=== PATIENT | female | born 1980 | race African-American/Black ===

== ENCOUNTER 2017-10-05 06:49 | Inpatient (IN) | payer SELFPAY ==
--- NOTE | 2017-10-05 07:17 | PDOC ---
History of Present Illness <Kristin Banks - Last Filed: 10/05/17 16:48> - History of Present Illness Initial Comments: 10/05/17 07:12 35 yo F with h/o HTN, HLD, sickle cell disease, DVT, chronic cystitis who p/w vomiting, and abdominal pain. Patient reports acute onset of multiple 10+ episodes of non bilious, non bloody, emesis beginning at 0400 AM, with no identifiable triggers or alleviators. Also endorses widespread dull pain, and diffuse crampy abdominal pain. Nml bowel movements with absent BPR. Also endorses hematuria. Recently returned from travel to [place] yesterday. Was in normal state of health yesterday. Patient states thats she had similar episodes in past and only phenergine has been helpful in alleviating symptoms. Ambulatory Phenergine 25 mg PRN. Similar episode (09/02/17) requiring outside admission for pain control, with gastroenteritis. 1 cup of alcohol yesterday evening 11-12. Patient denies F/C, CP, SOB, diarrhea, constipation, lightheadedness, weakness , sensory changes. PMHx: as noted above. Denies h/o abdominal surgery. ROS: as noted SHx: Etoh 2 x a week. Denies Etoh, tobacco. Allergies: NKDA <Yordy Barton - Last Filed: 10/05/17 17:04> - General Stated Complaint: ABDOMINAL PAIN Time Seen by Provider: 10/05/17 07:02 Past History <Kristin Banks - Last Filed: 10/05/17 16:48> - Past Medical History Disorders: Yes (chronic cystitis) HTN: Yes - Suicide/Smoking/Psychosocial Hx Smoking History: Never smoked Hx Alcohol Use: No Drug/Substance Use Hx: No Substance Use Type: None <Yordy Barton - Last Filed: 10/05/17 17:04> - Past Medical History Allergies/Adverse Reactions: Allergies Allergy/AdvReac Type Severity Reaction Status Date / Time ondansetron HCl AdvReac Intermediate Rash Verified 10/05/17 09:46 [From Zofran (as hydrochloride)] Home Medications: Ambulatory Orders Amlodipine Besylate [Norvasc -] 5 mg PO DAILY #30 tablet 05/15/16 Review of Systems - Review of Systems Comments:: 10/05/17 07:16 GENERAL/CONSTITUTIONAL: No fever or chills. No weakness. HEAD, EYES, EARS, NOSE AND THROAT: No change in vision. No ear pain or discharge. No sore throat. CARDIOVASCULAR: No chest pain or shortness of breath RESPIRATORY: No cough, wheezing, or hemoptysis. GASTROINTESTINAL: +abdominal pain, nausea, vomiting. No diarrhea or constipation. GENITOURINARY: No dysuria, frequency, or change in urination. MUSCULOSKELETAL: No joint or muscle swelling or pain. No neck or back pain. SKIN: No rash NEUROLOGIC: No headache, vertigo, loss of consciousness, or change in strength/ sensation. ENDOCRINE: No increased thirst. No abnormal weight change HEMATOLOGIC/LYMPHATIC: No anemia, easy bleeding, or history of blood clots. ALLERGIC/IMMUNOLOGIC: No hives or skin allergy. <Yordy Barton - Last Filed: 10/05/17 17:04> *Physical Exam - Vital Signs Last Vital Signs Temp Pulse Resp BP Pulse Ox 98 F 95 H 17 110/82 99 10/05/17 15:53 10/05/17 15:53 10/05/17 15:53 10/05/17 15:53 10/05/17 15:53 <Kristin Banks - Last Filed: 10/05/17 16:48> - Physical Exam Comments: 10/05/17 07:16 GENERAL: Awake, alert, and fully oriented, in no acute distress HEAD: No signs of trauma, normocephalic, atraumatic EYES: PERRLA, EOMI, sclera anicteric, conjunctiva clear ENT: Hearing grossly normal, nares patent, oropharynx clear without exudates. Moist mucosa NECK: Normal ROM, supple, no lymphadenopathy, JVD, or masses LUNGS: No distress, speaks full sentences, clear to auscultation bilaterally HEART: Regular rate and rhythm, normal S1 and S2, no murmurs, rubs or gallops, peripheral pulses normal and equal bilaterally. ABDOMEN: + Diffusely ttp. Soft, NDS, normoactive bowel sounds. No guarding, no rebound. No masses. Neg CVA ttp. EXTREMITIES : Normal inspection, Normal range of motion, no edema. No clubbing or cyanosis. SKIN: Warm, Dry, normal turgor, no rashes or lesions noted <Yordy Barton - Last Filed: 10/05/17 17:04> ED Treatment Course - LABORATORY CBC & Chemistry Diagram: 10/05/17 08:30 10/05/17 08:30 - ADDITIONAL ORDERS Additional order review: Laboratory Results 10/05/17 10/05/17 10/05/17 11:00 08:46 08:30 Sodium 143 Potassium 3.7 Chloride 109 H Carbon Dioxide 21 Anion Gap 13 BUN 12 Creatinine 0.8 Creat Clearance w eGFR > 60 Random Glucose 170 H Calcium 9.5 Total Bilirubin 0.4 AST 28 ALT 33 Alkaline Phosphatase 115 Total Protein 8.1 Albumin 4.1 Lipase Cancelled 149 Urine Color Yellow Urine Appearance Slcloudy Urine pH 6.0 Ur Specific [place] 1.014 Urine Protein 2+ H Urine Glucose (UA) 2+ H Urine Ketones Trace H Urine Blood 2+ H Urine Nitrite Positive Urine Bilirubin Negative Urine Urobilinogen Negative Ur Leukocyte Esterase Negative Urine WBC (Auto) 4 Urine RBC (Auto) 1 Ur Epithelial Cells Few Urine Bacteria Rare Urine Mucus Rare Urine HCG, Qual Negative 10/05/17 08:30 RBC 4.65 MCV 89.9 MCHC 34.4 RDW 13.6 MPV 7.7 Neutrophils % 79.9 D Lymphocytes % 13.2 D Monocytes % 3.8 Eosinophils % 2.0 Basophils % 1.1 - RADIOLOGY Radiology Studies Ordered: Category Date Time Status CHEST PA & LAT [RAD] Stat Radiology 10/05/17 15:23 Ordered - Medications Given in the ED: ED Medications Discontinued Medications Generic Name Dose Route Start Last Admin Trade Name Leeroy PRN Reason Stop Dose Admin Acetaminophen 1,000 mg 10/05/17 07:54 10/05/17 08:15 Ofirmev Injection - IVPB 10/05/17 07:55 Not Given ONCE ONE Diphenhydramine HCl 25 mg 10/05/17 08:46 10/05/17 08:55 Benadryl Injection - IVPUSH 10/05/17 08:47 25 mg ONCE ONE Administration Sodium Chloride 1,000 mls @ 1,000 mls/hr 10/05/17 07:28 10/05/17 08:35 Normal Saline - IV 10/05/17 08:27 1,000 mls/hr ASDIR STA Administration Sodium Chloride 1,000 mls @ 1,000 mls/hr 10/05/17 11:17 10/05/17 11:21 Normal Saline - IV 10/05/17 12:16 1,000 mls/hr ASDIR STA Administration Metoclopramide HCl 10 mg 10/05/17 10:59 10/05/17 11:21 Reglan Injection - IVPUSH 10/05/17 11:00 10 mg ONCE ONE Administration Morphine Sulfate 4 mg 10/05/17 08:34 10/05/17 08:45 Morphine Injection - IVPUSH 10/05/17 08:35 4 mg ONCE ONE Administration Morphine Sulfate 4 mg 10/05/17 09:36 10/05/17 10:21 Morphine Injection - IVPUSH 10/05/17 09:37 4 mg ONCE ONE Administration Morphine Sulfate 4 mg 10/05/17 11:26 10/05/17 11:46 Morphine Injection - IVPUSH 10/05/17 11:27 4 mg ONCE ONE Administration Ondansetron HCl 4 mg 10/05/17 08:34 10/05/17 08:45 Zofran Injection IVPUSH 10/05/17 08:35 4 mg ONCE ONE Administration Ondansetron HCl 4 mg 10/05/17 09:42 10/05/17 10:21 Zofran Injection IVPB 10/05/17 09:43 4 mg ONCE ONE Administration Promethazine HCl 12.5 mg 10/05/17 07:25 10/05/17 08:00 Phenergan - PO 10/05/17 07:26 Not Given ONCE ONE Promethazine HCl 12.5 mg 10/05/17 08:00 10/05/17 08:15 Phenergan Injection - IVPUSH 10/05/17 08:01 12.5 mg ONCE ONE Administration <Kristin Banks - Last Filed: 10/05/17 16:48> - LABORATORY CBC & Chemistry Diagram: 10/05/17 08:30 10/05/17 08:30 <Yordy Barton - Last Filed: 10/05/17 17:04> Medical Decision Making - Medical Decision Making 10/05/17 08:10 35 yo F with h/o HTN, HLD, sickle cell disease, DVT, chronic cystitis who p/w vomiting, and abdominal pain. Probable gastroenteritis. Low suspicon SBO, mesenteric ischemia. DDx: diverticulitis, appendicitis, colitis, cystitis, biliary dz. ED Course: CBC, CMP, Reticulocyte count, Lipase Phenergine 12.5 IVP, Tylenol, NS UA, Urine Preg 10/05/17 09:14 WBC: 17.9 10/05/17 09:14 Morphine 4 mg, Zofran 4 mg, Diphenhydramine 25 mg 10/05/17 11:25 GB: Neg 10/05/17 11:25 Reglan 10 mg 10/05/17 13:18 GB U/S: Neg 10/05/17 13:42 IV infiltrated, CT AP CON D/c'd. 10/05/17 17:04 CT AP: Unremarkable Patient admitted to med/surg. Dr. casper. <Yordy Barton - Last Filed: 10/05/17 17:04> *DC/Admit/Observation/Transfer - Discharge Dispostion Decision to Admit order: Yes <Kristin Banks - Last Filed: 10/05/17 16:48> - Discharge Dispostion Decision to Admit order: Yes - Attestations Physician Attestion: 10/05/17 07:17 I attest to the information provided in this note. <Yordy Barton - Last Filed: 10/05/17 17:04> Diagnosis at time of Disposition: Sickle cell anemia with crisis, Intractable abdominal pain Intractable vomiting with nausea Qualifiers: Vomiting type: unspecified Qualified Code(s): R11.2 - Nausea with vomiting, unspecified - Discharge Dispostion Condition at time of disposition: Stable - Patient Instructions Additional Instructions: Please return to the emergency department with any new or worsening symptoms or concerns. Please follow up with your primary care physician within 72 hours.
[2017-10-05] MEDS ORDERED: PROMETHAZINE HCL 25 MG TABLET PO ONE (07:25)
[2017-10-05] MEDS ORDERED: SODIUM CHLORIDE 1,000 ML IV STA ×2 (07:28→11:17)
[2017-10-05] MEDS ORDERED: ACETAMINOPHEN 1000 MG/100 ML VIAL (NON FORMULARY) IVPB ONE (07:54)
[2017-10-05] MEDS ORDERED: ACETAMINOPHEN INJECTION 100 ML IVPB ONE (07:55)
[2017-10-05] MEDS ORDERED: PROMETHAZINE HCL 25 MG/1 ML VIAL IVPUSH ONE (08:00)
[2017-10-05] MEDS ORDERED: PROMETHAZINE HCL 25 MG/1 ML VIAL ONE (08:25)
[2017-10-05] MEDS ORDERED: ONDANSETRON 4 MG/2 ML VIAL IVPUSH ONE (08:34)
[2017-10-05] MEDS ORDERED: morphine CARPU-JECT 4 MG/1 ML DISP.SYRIN IVPUSH ONE ×3 (08:34→11:26)
[2017-10-05] MEDS ORDERED: ONDANSETRON 4 MG/2 ML VIAL ONE ×2 (08:39→09:43)
[2017-10-05] MEDS ORDERED: morphine SULFATE 4 MG/ML VIAL ONE ×4 (08:39→19:43)
[2017-10-05 09:02] LABS: BASO % 1.1 % (0-2.0); HEMATOCRIT 41.8 % (32.4-45.2); HEMOGLOBIN 14.4 GM/dL (10.7-15.3); LYMPH % 13.2 % (8-40); MCHC 34.4 g/dl (32.0-36.0); MEAN CELL VOLUME 89.9 fl (80-96); MEAN PLT VOLUME 7.7 fl (7.5-11.1); MONO % 3.8 % (3.8-10.2); NEUT % 79.9 % (42.8-82.8); PLATELET COUNT 348 K/MM3 (134-434); RBC 4.65 M/mm3 (3.60-5.2); RDW 13.6 % (11.6-15.6); WHITE BLOOD COUNT 17.9 K/mm3 (4.0-10.0)
--- NOTE | 2017-10-05 09:30 | PDOC ---
Attending Attestation - HPI HPI: 10/05/17 10:56 The patient is a 35 year old female with a significant past medical history of sickle cell disease, DVT, HTN, HLD, and chronic cystitis who presents to the emergency department for evaluation of abdominal pain and vomiting. The patient reports diffuse abdominal pain beginning last night. She reports multiple episodes (10+) of non-bloody, non-bilious vomiting secondary to her pain which started at 4am. Pt reports recently returning from [place] yesterday. She notes her last state of good health was yesterday. The patient denies chest pain, shortness of breath, headache, dizziness, fever, chills, and any bowel/urinary symptoms. Allergies: Ondansetron HCl Social History: Reported alcohol consumption 2x a week. No reported cigarette or drug use. Surgical History: Pt denies. <Adolfo Zeng - Last Filed: 10/05/17 10:55> - Resident Resident Name: Yordy Barton - ED Attending Attestation I have performed the following: I have examined & evaluated the patient, The case was reviewed & discussed with the resident, I agree w/resident's findings & plan, Exceptions are as noted - Physicial Exam PE: 10/05/17 11:36 awake alert lungs clear bilaterally heart rrr no mrg. abd soft mild epigastric ttp . no rebound no guarding. skin warm and dry. alert oriented x 3 - Medical Decision Making 10/05/17 11:40 differential cholelithiasis, cholecystitis, gastritis, viral syndrome, sickle crisis, opiate withdrawal. plan labs ivf, us gb pain control. us unremakralbe. pt with elevated wbc. will obtain ct r/o other abd causes for n /v. abd pain. <Kristin Banks - Last Filed: 10/05/17 11:41> Attestations - Attestations Documentation prepared by Adolfo Zeng, acting as medical affairs manager for Kristin Banks MD. <Adolfo Zeng - Last Filed: 10/05/17 10:55>
[2017-10-05 09:34] LABS: ALBUMIN 4.1 g/dl (3.4-5.0); ANION GAP 13 (8-16); BLOOD UREA NITROGEN 12 mg/dL (7-18); CALCIUM 9.5 mg/dL (8.5-10.1); CHLORIDE 109 mmol/L (98-107); CO2 21 mmol/L (21-32); CREATININE 0.8 mg/dL (0.55-1.02); GLUCOSE,RANDOM 170 mg/dL (74-106); LIPASE 149 U/L (73-393); POTASSIUM 3.7 mmol/L (3.5-5.1); SGOT/AST 28 U/L (15-37); SODIUM 143 mmol/L (136-145)
[2017-10-05] MEDS ORDERED: ONDANSETRON 4 MG/2 ML VIAL IVPB ONE (09:42)
[2017-10-05 09:47] LABS: ALK PHOS 115 U/L (45-117); BILIRUBIN,TOTAL 0.4 mg/dL (0.2-1.0); SGPT/ALT 33 U/L (12-78); TOT PROT 8.1 g/dl (6.4-8.2)
[2017-10-05] MEDS ORDERED: METOCLOPRAMIDE HCL INJECTION 10 MG/2 ML VIAL IVPUSH ONE (10:59)
[2017-10-05] MEDS ORDERED: METOCLOPRAMIDE HCL INJECTION 10 MG/2 ML VIAL ONE (11:08)
[2017-10-05] MEDS ORDERED: MORPHINE SULFATE 2 MG/ML VIAL ONE (11:32)
[2017-10-05 11:40] LABS: HCG,QUALITATIVE URINE NEGATIVE
[2017-10-05 11:45] LABS: URINE APPEARANCE SLCLOUDY; URINE BILIRUBIN NEGATIVE (<2.0 mg/dL); URINE COLOR YELLOW; URINE GLUCOSE (UA) 2+ (NEGATIVE); URINE KETONE TRACE (NEGATIVE); URINE LEUK ESTERASE NEGATIVE (NEGATIVE); URINE NITRITE POSITIVE (NEGATIVE); URINE UROBILINOGEN NEGATIVE mg/dL (0.2-1.0)
[2017-10-05 11:54] LABS: URINE PROTEIN 2+ (NEGATIVE)
[2017-10-05 12:42] LABS: EPI CELLS FEW /HPF (FEW); URINE BACTERIA RARE /hpf (NONE SEEN); URINE MUCUS RARE
--- NOTE | 2017-10-05 15:46 | HP ---
CHIEF COMPLAINT: PCP: HISTORY OF PRESENT ILLNESS: Pt is a 37 yo F with PMHx of sickle cell disease ( multiple crises), fibromyalgia, DVT x3, PE x2, HTN, HLD, and chronic cystitis presenting after her 1am flight from [place] with abdominal pain, n/v and generalized body pain that started around 3am. It started with increased diaphoresis, no objective fevers. Pt describes a 10/10 intermittent colicky generalized abd pain with NBNB vomiting later associated streaks of blood. Pt last ate yesterday because of N/V. Pt had endoscopy for similar symptoms in the past which was said to be normal. She had up to 10 episodes of vomiting in the ED, some witnessed with eventual dry heaving. She describes 3 episodes of loose non bloody stool and hematuria. Pt has had similar symptoms in past during her sickel cell crises and has been managed with genrous hydration and pain mx. She also has pain in both shoulders, back and both lower limbs. Pt has had up to 10 crises this year. Had 2 in August (, August 16). Says she takes hydrocodone 7.5-10mg at home as needed for pain. She got off xarelto a month ago after a DVT of left LE in apr 2017 and she also discontinued coumadin and lovenox in the past for previous DVTs/PEs. Pt has a hemoncologist in [facility] and thinks she was prescribed hydroxyurea, but does not take it. Pt has had 2nd degree blocks in the past during her crises, dose not take her prescribed amlodipine along with other medications because she is trying out natural options. Initially dyspneic today, which has since resolved, no syncope, weakness or cough.She noticed some thigh swelling bilaterally ER course was notable for: (1) CT abd w/o contrast- wnl, Abd US (2) WBC-17.9, UA- glucosuria 2+, trace ketones, Pr, bld-2+, sugar -175 (3) Iv morphine, Normal saline, Recent Travel: From [place] yesterday PAST MEDICAL HISTORY: sickle cell disease (multiple crises), fibromyalgia, DVT x3, PE x2, HTN, HLD PAST SURGICAL HISTORY: Social History: Smoking: Denies Alcohol:Social Drugs: Marijuana- x3 a week Family History: Both parents are diabetic, diagnosed about 10yrs ago- Father 68, Mother 61 Brother- prediabetic Sister- SCD and Lupus Allergies ondansetron HCl [From Zofran (as hydrochloride)] Adverse Reaction (Intermediate , Verified 10/05/17 09:46) Rash HOME MEDICATIONS: Home Medications Medication Instructions Recorded Amlodipine Besylate [Norvasc -] 5 mg PO DAILY #30 tablet 05/15/16 REVIEW OF SYSTEMS CONSTITUTIONAL: diaphoresis+ Absent: fever, chills, generalized weakness, malaise, loss of appetite, weight change HEENT: Absent: rhinorrhea, nasal congestion, throat pain, throat swelling, difficulty swallowing, mouth swelling, ear pain, eye pain, visual changes CARDIOVASCULAR: Absent: chest pain, syncope, palpitations, irregular heart rate, lightheadedness , peripheral edema RESPIRATORY: Absent: cough, shortness of breath, dyspnea with exertion, orthopnea, wheezing, stridor, hemoptysis GASTROINTESTINAL: Absent: abdominal pain+, abdominal distension, nausea+, vomiting+, diarrhea, constipation, melena, hematochezia GENITOURINARY: Absent: dysuria, frequency, urgency, hesitancy, hematuria+, flank pain, genital pain MUSCULOSKELETAL: Absent: myalgia+, arthralgia, joint swelling, back pain+, neck pain SKIN: Absent: rash, itching, pallor HEMATOLOGIC/IMMUNOLOGIC: Absent: easy bleeding, easy bruising, lymphadenopathy, frequent infections ENDOCRINE: Absent: unexplained weight gain, unexplained weight loss, heat intolerance, cold intolerance NEUROLOGIC: Absent: headache, focal weakness or paresthesias, dizziness, unsteady gait, seizure, mental status changes, bladder or bowel incontinence PSYCHIATRIC: Absent: anxiety, depression, suicidal or homicidal ideation, hallucinations. PHYSICAL EXAMINATION Vital Signs - 24 hr 10/05/17 10/05/17 10/05/17 07:05 10:01 10:10 Temperature 97.5 F L 97.8 F 97.5 F L Pulse Rate 75 Pulse Rate [ 87 87 Right Radial] Respiratory 17 17 20 Rate Blood Pressure 175/103 Blood Pressure 110/61 110/61 [Left Arm] O2 Sat by Pulse 100 98 99 Oximetry (%) 10/05/17 11:45 Temperature Pulse Rate Pulse Rate [ 89 Right Radial] Respiratory 17 Rate Blood Pressure Blood Pressure 165/104 [Left Arm] O2 Sat by Pulse 98 Oximetry (%) GENERAL: Awake, alert, and fully oriented, in no acute distress. EYES: anicteric, conjunctiva clear. EARS, NOSE, THROAT: Moist mucous membranes. NECK: supple without lymphadenopathy, LUNGS: Breath sounds equal, clear to auscultation bilaterally. No wheezes, and no crackles HEART: tachycardic, S1 and S2 ABDOMEN: Soft, generalized tenderness, not distended, normoactive bowel sounds, MUSCULOSKELETAL: Normal range of motion at all joints. reproducible generalized tenderness. No CVA tenderness. L UE redness and swelling (iv extravasation) LOWER EXTREMITIES: No peripheral edema. Firm swelling over thighs bilaterally NEUROLOGICAL: Cranial nerves II-XII intact. Normal speech. Normal gait. CBC, BMP 10/05/17 08:30 10/05/17 08:30 Laboratory Results - last 24 hr 10/05/17 10/05/17 10/05/17 08:30 08:30 08:46 WBC 17.9 H RBC 4.65 Hgb 14.4 Hct 41.8 MCV 89.9 MCH 31.0 MCHC 34.4 RDW 13.6 Plt Count 348 D MPV 7.7 Absolute Neuts (auto) 14.3 Neutrophils % 79.9 D Lymphocytes % 13.2 D Monocytes % 3.8 Eosinophils % 2.0 Basophils % 1.1 Nucleated RBC % 0 Retic Count Sodium 143 Potassium 3.7 Chloride 109 H Carbon Dioxide 21 Anion Gap 13 BUN 12 Creatinine 0.8 Creat Clearance w eGFR > 60 Random Glucose 170 H Calcium 9.5 Total Bilirubin 0.4 AST 28 ALT 33 Alkaline Phosphatase 115 Total Protein 8.1 Albumin 4.1 Lipase 149 Cancelled Urine Color Urine Appearance Urine pH Ur Specific [place] Urine Protein Urine Glucose (UA) Urine Ketones Urine Blood Urine Nitrite Urine Bilirubin Urine Urobilinogen Ur Leukocyte Esterase Urine WBC (Auto) Urine RBC (Auto) Ur Epithelial Cells Urine Bacteria Urine Mucus Urine HCG, Qual 10/05/17 10/05/17 09:28 11:00 WBC RBC Hgb Hct MCV MCH MCHC RDW Plt Count MPV Absolute Neuts (auto) Neutrophils % Lymphocytes % Monocytes % Eosinophils % Basophils % Nucleated RBC % Retic Count 1.30 D Sodium Potassium Chloride Carbon Dioxide Anion Gap BUN Creatinine Creat Clearance w eGFR Random Glucose Calcium Total Bilirubin AST ALT Alkaline Phosphatase Total Protein Albumin Lipase Urine Color Yellow Urine Appearance Slcloudy Urine pH 6.0 Ur Specific [place] 1.014 Urine Protein 2+ H Urine Glucose (UA) 2+ H Urine Ketones Trace H Urine Blood 2+ H Urine Nitrite Positive Urine Bilirubin Negative Urine Urobilinogen Negative Ur Leukocyte Esterase Negative Urine WBC (Auto) 4 Urine RBC (Auto) 1 Ur Epithelial Cells Few Urine Bacteria Rare Urine Mucus Rare Urine HCG, Qual Negative Current Medications Enoxaparin Sodium (Lovenox -) 75 mg SQ BID@0700,1900 THOM Hydromorphone HCl (Dilaudid Injection -) 2 mg IVPUSH Q3H PRN PRN Reason: PAIN LEVEL 6-10 Sodium Chloride (Normal Saline -) 1,000 mls @ 150 mls/hr IV ASDIR THOM Insulin Aspart (Novolog Vial Sliding Scale -) 1 vial SQ ACHS THOM; Protocol Miscellaneous (Percocet - Must Order Individual Components) 1 each NR ASDIR PRN PRN Reason: PAIN LEVEL 1-5 Ondansetron HCl (Zofran Injection) 4 mg IVPUSH Q4H PRN PRN Reason: NAUSEA Pantoprazole Sodium (Protonix Iv) 40 mg IVPUSH DAILY [facility] ASSESSMENT/PLAN: Pt is a 37 yo F with PMHx of SCD (multiple crises), fibromyalgia, DVT x3, PE x2 , HTN, HLD, and chronic cystitis presenting after her 1am flight from [place] with abdominal pain, n/v and generalized body pain Sickle cell crisis-likely pain crisis Likely due to hypoxia following the flight Pt not compliant on home hydrourea Recurrent frequent crises (2 in August) Pain mx with Po dilaudid 2mg Q3H PRN (pain 6-10) Percocet 5mg Q6H (pain 1-5) Iv morphine 4mg Q4H Iv Fluids received NS in ED Cont NS @150/hr Hemonc consult- Dr Weiss antiemetic- zofran 4mg Q4H CXR pending Epigastric pain Likely secondary to retching, no massive hematemesis reported Hgb stable Iv protonix 40mg daily zofran 4mg Q4H CBC Monitor Out pt endoscopy- previously negative CT abd negative Nausea/vomting Reported as part of previous SCD crises Cont zofran Cont iv hydration Utox- hx of marijuana use, R/o cannabinnoid cyclical vomiting syndrome LE (thigh)swelling and pain L>R Hx of recurrent DVTs R/o DVt-Bilat LE venous duplx Cont lovenox full dose HTN Pt noted to have elevated pressures in the ED Could be due to pain Had not been compliant on home amlodipine Monitor off BP meds for now If trending up add 5mg amlodipine Prediabetes Now with glucosuria, glu 175 (last meal yesterday), with FHx of DM HgbA1c BGM -ACHS ISS-ACHS Previous DVT/PE Pt said she stopped xarelto 1 month ago after DVT in Apr 2017 Considering hematuria and likely hematemesis, with hold xarelto for now Lovenox 1mg/kg bid- 75mg bid Q12H LUE swelling Following iv extravasation Warm compress Monitor Hx of 2nd degree heart block In previous crises EKG pending For tele in pt FEN Iv Ns @150 Monitor lytes replete as needed Full liq diabetic diet, advance as tolerated PPx Cont lovenox full dose Protonix Dispo Tele in pt Visit type - Emergency Visit Emergency Visit: Yes ED Registration Date: 10/05/17 Care time: The patient presented to the Emergency Department on the above date and was hospitalized for further evaluation of their emergent condition. - New Patient This patient is new to me today: Yes Date on this admission: 10/05/17 - Critical Care Critical Care patient: No Hospitalist Screening - Colonoscopy Questionnaire Colonoscopy Questionnaire: Colonoscopy Questionnaire - Patient: 50 - 75 years old and never had a screening colonoscopy: No History of colon or rectal polyps, or CA: Unknown History of IBD, Crohn's disease or UC: Unknown History of abdominal radiation therapy as a child: Unknown - Relative: 1 with colon or rectal CA, or polyps at age 60 or younger: Unknown Colon or rectal CA diagnosed at age 45 or younger: Unknown Multiple relatives with colon or rectal CA: Unknown - Outcome: Screening Result: Negative Screen
[2017-10-05] MEDS ORDERED: INSULIN SLIDING SCALE (NOVOLOG) 1 VIAL SQ SCH (16:30)
[2017-10-05] MEDS ORDERED: LIDOCAINE 2.5%/PRILOCAINE 2.5% (5 Gram/TUBE) TP ONE (16:43)
[2017-10-05] MEDS ORDERED: HYDROmorphone HCL CARPU-JECT 2 MG/1 ML DISP.SYRIN IVPUSH PRN ×2 (16:47→17:02)
--- NOTE | 2017-10-05 16:47 | PN ---
Teaching Attending Note Name of Resident: Naida Reyes ATTENDING PHYSICIAN STATEMENT I saw and evaluated the patient. I reviewed the resident's note and discussed the case with the resident. I agree with the resident's findings and plan as documented with exceptions below. SUBJECTIVE: 37 yof with PMhx of sickle cell disease, multiple sickle cell crisis episodes over the years, 8 in the last year, recently admitted x 2 in August in [place] for the same, also multiple DVT/PE, last DVT in 04/2017, not taking her xarelto for last 1 month ( Prior h/o non compliance with her coumadin), living in [place], visiting her mother, was on a flight from [place] yesterday, came later last night. Work up this AM with sharp epigastric pain, progressing to generalized abdominal pain associated chest, back and generalized body pain followed by nausea, and vomiting that started as food initially followed by some scant blood streaks, then bilious, multiple episodes with no PO intake and few episodes of loose stools, prompting her to come to the ED. Had some dyspnea on admission that is resolved now. Currently feels better after receiving pain meds and fluids in the ED. States the episode is similar to her multiple prior flares, also occasional blood streak with her vomitus, had an EGD for the same that was reportedly unremarkable. Usually ends up needing to stay 2-4 days in the hospital. 12 point ROS done, also with left thigh pain and PO intake since yesterday 7 pm. Patient was planned for CT with IV contrast, alf though contrast injection, IV infiltrated. Currently reports some discomfort right arm from the same but better. OBJECTIVE: Vital Signs Period Temp Pulse Resp BP Sys/Michael Pulse Ox Last 24 Hr 97.5 F-98 F 75-95 17-20 110-175/61-104 98-100 Intake & Output 10/02/17 10/03/17 10/04/17 10/05/17 23:59 23:59 23:59 23:59 Weight 165 lb GENERAL: Awake, alert, and fully oriented, in no acute distress. HEAD: Normal with no signs of trauma. EYES: Pupils equal, round and reactive to light, extraocular movements intact, sclera anicteric, conjunctiva clear. No lid lag. EARS, NOSE, THROAT: Ears normal, nares patent, oropharynx clear without exudates. Mildly dry mucous membrane. NECK: soft, supple, no JVD LUNGS: Breath sounds equal, clear to auscultation bilaterally. No wheezes, and no crackles. No accessory muscle use. HEART: S1S2 regular. ABDOMEN: Soft, generalized tenderness on exam more in larry-umbilical region, no focal point, no voluntary or involuntary guarding or rigidity, positive bowel sounds MUSCULOSKELETAL: Normal range of motion at all joints. No bony deformities or tenderness. No CVA tenderness. UPPER EXTREMITIES: left hand edema from prior IV site, Right antecubital IV site with minimal swelling in ventral right forearm LOWER EXTREMITIES: 2+ pulses, warm, well-perfused. Right thigh swelling/minimal tenderness NEUROLOGICAL: Cranial nerves II-XII intact. Normal speech. Gait deferred PSYCHIATRIC: Cooperative. Good eye contact. Appropriate mood and affect. SKIN: Warm, dry, normal turgor, no rashes or lesions noted, normal capillary refill. Home Medications Medication Instructions Recorded Amlodipine Besylate [Norvasc -] 5 mg PO DAILY #30 tablet 05/15/16 Active Medications Insulin Aspart (Novolog Vial Sliding Scale -) 1 vial SQ [facility]; Protocol Laboratory Results - last 24 hr 10/05/17 10/05/17 10/05/17 08:30 08:30 08:46 WBC 17.9 H RBC 4.65 Hgb 14.4 Hct 41.8 MCV 89.9 MCH 31.0 MCHC 34.4 RDW 13.6 Plt Count 348 D MPV 7.7 Absolute Neuts (auto) 14.3 Neutrophils % 79.9 D Lymphocytes % 13.2 D Monocytes % 3.8 Eosinophils % 2.0 Basophils % 1.1 Nucleated RBC % 0 Retic Count Sodium 143 Potassium 3.7 Chloride 109 H Carbon Dioxide 21 Anion Gap 13 BUN 12 Creatinine 0.8 Creat Clearance w eGFR > 60 Random Glucose 170 H Calcium 9.5 Total Bilirubin 0.4 AST 28 ALT 33 Alkaline Phosphatase 115 Total Protein 8.1 Albumin 4.1 Lipase 149 Cancelled Urine Color Urine Appearance Urine pH Ur Specific [place] Urine Protein Urine Glucose (UA) Urine Ketones Urine Blood Urine Nitrite Urine Bilirubin Urine Urobilinogen Ur Leukocyte Esterase Urine WBC (Auto) Urine RBC (Auto) Ur Epithelial Cells Urine Bacteria Urine Mucus Urine HCG, Qual 10/05/17 10/05/17 09:28 11:00 WBC RBC Hgb Hct MCV MCH MCHC RDW Plt Count MPV Absolute Neuts (auto) Neutrophils % Lymphocytes % Monocytes % Eosinophils % Basophils % Nucleated RBC % Retic Count 1.30 D Sodium Potassium Chloride Carbon Dioxide Anion Gap BUN Creatinine Creat Clearance w eGFR Random Glucose Calcium Total Bilirubin AST ALT Alkaline Phosphatase Total Protein Albumin Lipase Urine Color Yellow Urine Appearance Slcloudy Urine pH 6.0 Ur Specific [place] 1.014 Urine Protein 2+ H Urine Glucose (UA) 2+ H Urine Ketones Trace H Urine Blood 2+ H Urine Nitrite Positive Urine Bilirubin Negative Urine Urobilinogen Negative Ur Leukocyte Esterase Negative Urine WBC (Auto) 4 Urine RBC (Auto) 1 Ur Epithelial Cells Few Urine Bacteria Rare Urine Mucus Rare Urine HCG, Qual Negative Abdominal US results noted CT A/P results noted ASSESSMENT AND PLAN: 37 yof with acute sickle cell crisis with left thigh pain -Acute sickle cell crisis -Dehydration -Nausea/vomiting/diarrhea, /From her sickle cell crisis (reports similar prior presentations) vs gastroenteritis high on different -?Scant hemetemesis, from vomiting (similar prior episodes and reportedly non concerning EGD outpatient) -Left thigh pain, r/o DVT -LUE IV infiltration -Multiple DVT/PE, non compliance with xarelto -HTN -Reported h/o second degree Heart block in crisis. Plan: Supportive treatment with aggressive IVF, NS 150/hr, zofran, pain control with dilaudid 2 mg IV q3h prn. full liquid diet, advance as tolerated. Recurrent episodes, Unclear if on hydroxyurea. Hematology consult. Stool studies if recurrent diarrhea. No focal signs/symptoms concerning for infection. Dopper LLE to r/o DVT. Monitor h/h. hemoglobin and hemodynamics stable, low suspicion for ongoing bleed. Place on lovenox tonight. If no further bleed concerns, resume xarelto in 24 hours. Warm compresses to LUE. Resume norvasc based on BP readings. DVTPPX, as above. GIPPX with protonix 40 mg IV daily. Admit to telemetry given reported h/o 2 degree AVB while in crisis. Plan discussed with patient in detail, all questions answered. Patient relays understanding and in agreement with the plan. Total admit time 65 min.
[2017-10-05] MEDS ORDERED: ONDANSETRON 4 MG/2 ML VIAL IVPUSH PRN (16:53)
[2017-10-05] MEDS ORDERED: SODIUM CHLORIDE 1,000 ML IV SCH (17:00)
[2017-10-05] MEDS ORDERED: oxyCODONE/APAP 1 EACH - MUST ORDER COMBO PRODUCT NR PRN (17:00)
[2017-10-05] MEDS ORDERED: morphine SULFATE 4 MG/ML VIAL IVPUSH ONE (17:15)
[2017-10-05] MEDS: morphine SULFATE 4 MG/ML VIAL IVPUSH PRN (20:06)
[2017-10-05] MEDS: SODIUM CHLORIDE 1,000 ML IV SCH (20:06)
[2017-10-05 20:41] LABS: INR 1.11 (0.82-1.09); PROTHROMBIN TIME (PATIENT) 12.5 SEC (9.7-13.0)
[2017-10-05] MEDS ORDERED: ENOXAPARIN NA (PORCINE) 80 MG/0.8 ML DISP.SYRIN SQ SCH (22:00)
[2017-10-06] MEDS ORDERED: ONDANSETRON 4 MG/2 ML VIAL ONE ×2 (00:34→09:01)
[2017-10-06] MEDS ORDERED: morphine SULFATE 4 MG/ML VIAL ONE ×3 (00:34→11:45)
[2017-10-06] MEDS: morphine SULFATE 4 MG/ML VIAL IVPUSH PRN ×5 (00:42→20:44)
[2017-10-06] MEDS: ONDANSETRON 4 MG/2 ML VIAL IVPUSH PRN ×3 (00:43→20:43)
[2017-10-06] MEDS ORDERED: HYDROmorphone HCL 2 MG TABLET ONE ×4 (03:34→13:26)
[2017-10-06] MEDS: HYDROmorphone HCL 2 MG TABLET PO PRN ×5 (03:36→22:51)
[2017-10-06 06:36] LABS: BASO % 0.2 % (0-2.0); EOS % 1.7 % (0-4.5); HEMATOCRIT 36.8 % (32.4-45.2); HEMOGLOBIN 12.8 GM/dL (10.7-15.3); LYMPH % 26.1 % (8-40); MCH 30.9 pg (25.7-33.7); MCHC 34.8 g/dl (32.0-36.0); MEAN CELL VOLUME 88.9 fl (80-96); MEAN PLT VOLUME 7.6 fl (7.5-11.1); PLATELET COUNT 265 K/MM3 (134-434); RBC 4.14 M/mm3 (3.60-5.2); RDW 13.7 % (11.6-15.6); WHITE BLOOD COUNT 10.9 K/mm3 (4.0-10.0)
[2017-10-06 07:06] LABS: INR 1.17 (0.82-1.09); PROTHROMBIN TIME (PATIENT) 13.2 SEC (9.7-13.0)
[2017-10-06 07:29] LABS: ALBUMIN 3.6 g/dl (3.4-5.0); ANION GAP 9 (8-16); BLOOD UREA NITROGEN 5 mg/dL (7-18); CALCIUM 8.3 mg/dL (8.5-10.1); CHLORIDE 111 mmol/L (98-107); CO2 24 mmol/L (21-32); CREATININE 0.6 mg/dL (0.55-1.02); GLUCOSE,RANDOM 87 mg/dL (74-106); MAGNESIUM 2.1 mg/dL (1.8-2.4); PHOSPHOROUS 2.4 mg/dL (2.5-4.9); POTASSIUM 3.6 mmol/L (3.5-5.1); SGOT/AST 21 U/L (15-37); SGPT/ALT 27 U/L (12-78); SODIUM 144 mmol/L (136-145)
[2017-10-06 07:31] LABS: ALK PHOS 95 U/L (45-117); BILIRUBIN,TOTAL 0.6 mg/dL (0.2-1.0)
[2017-10-06] MEDS: PANTOPRAZOLE SODIUM 40 MG VIAL IVPUSH SCH (10:24)
[2017-10-06] MEDS: ENOXAPARIN NA (PORCINE) 80 MG/0.8 ML DISP.SYRIN SQ SCH ×3 (10:32→20:43)
[2017-10-06] MEDS: INSULIN SLIDING SCALE (NOVOLOG) 1 VIAL SQ SCH ×3 (11:43→16:52)
--- NOTE | 2017-10-06 12:55 | CONSULT ---
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 She is visiting here from [place] and she was admitted with a crisis. She reports that she has upto 10 crisis per year. She has whole body pain veyr similar to her crisis pains. She had n/v with mild hematemesis and she also had bleeding per vagina which she reports happens with her crisis. Since yesterday she also has swelling in her L. arm (? iv infiltration) but also in her L. neck as well. She has had 1 blood clot and 2 * PE and hence she is on xarelto. She has one blood transfusion in the past in 2014 when she had a pneumonia. She was prescribed Hydroxyurea in the past for her recurrent crisi but she doesn't like taking multiple meds and hence doesnt take it. She only takes folic acid. She reports no retinopathy during her regular opthal. exams. Comorbidities : fibromyalgia, DVT x3, PE x2, HTN, HLD, and chronic cystitis ER course was notable for: (1) CT abd w/o contrast- wnl, Abd US (2) WBC-17.9, UA- glucosuria 2+, trace ketones, Pr, bld-2+, sugar -175 (3) Iv morphine, Normal saline, Recent Travel: From [place] PAST MEDICAL HISTORY: sickle cell disease (multiple crises), fibromyalgia, DVT x3, PE x2, HTN, HLD PAST SURGICAL HISTORY: Social History: Smoking: Denies Alcohol:Social Drugs: Marijuana- x3 a week Family History: Both parents are diabetic, diagnosed about 10yrs ago- Father 68, Mother 61 Brother- prediabetic Sister- SCD and Lupus Allergies ondansetron HCl [From Zofran (as hydrochloride)] Adverse Reaction (Intermediate , Verified 10/05/17 09:46) Rash HOME MEDICATIONS: Home Medications Medication Instructions Recorded Amlodipine Besylate [Norvasc -] 5 mg PO DAILY #30 tablet 05/15/16 REVIEW OF SYSTEMS CONSTITUTIONAL: diaphoresis+ Absent: fever, chills, generalized weakness, malaise, loss of appetite, weight change HEENT: Absent: rhinorrhea, nasal congestion, throat pain, throat swelling, difficulty swallowing, mouth swelling, ear pain, eye pain, visual changes CARDIOVASCULAR: Absent: chest pain, syncope, palpitations, irregular heart rate, lightheadedness , peripheral edema RESPIRATORY: Absent: cough, shortness of breath, dyspnea with exertion, orthopnea, wheezing, stridor, hemoptysis GASTROINTESTINAL: Absent: abdominal pain+, abdominal distension, nausea+, vomiting+, diarrhea, constipation, melena, hematochezia GENITOURINARY: Absent: dysuria, frequency, urgency, hesitancy, hematuria+, flank pain, genital pain MUSCULOSKELETAL: Absent: myalgia+, arthralgia, joint swelling, back pain+, neck pain SKIN: Absent: rash, itching, pallor HEMATOLOGIC/IMMUNOLOGIC: Absent: easy bleeding, easy bruising, lymphadenopathy, frequent infections ENDOCRINE: Absent: unexplained weight gain, unexplained weight loss, heat intolerance, cold intolerance NEUROLOGIC: Absent: headache, focal weakness or paresthesias, dizziness, unsteady gait, seizure, mental status changes, bladder or bowel incontinence PSYCHIATRIC: Absent: anxiety, depression, suicidal or homicidal ideation, hallucinations. PHYSICAL EXAMINATION Vital Signs Period Temp Pulse Resp BP Sys/Michael Pulse Ox Last 24 Hr 98 F-98.4 F 80-95 17-18 110-139/82-104 98-100 GENERAL: Awake, alert, and fully oriented, in no acute distress. EYES: anicteric, conjunctiva clear. EARS, NOSE, THROAT: Moist mucous membranes. NECK: supple without lymphadenopathy, ABDOMEN: Soft, generalized tenderness, not distended, normoactive bowel sounds, MUSCULOSKELETAL: Normal range of motion at all joints. reproducible generalized tenderness. No CVA tenderness. L UE swelling (iv extravasation). L. neck swelling as well. LOWER EXTREMITIES: No peripheral edema. NEUROLOGICAL: Cranial nerves II-XII intact. Normal speech. Normal gait. CBC, BMP 10/06/17 05:40 10/06/17 05:40 Current Medications Generic Name Dose Route Start Last Admin Trade Name Freq PRN Reason Stop Dose Admin Diphenhydramine HCl 12.5 mg 10/06/17 09:30 Benadryl Injection - IVPUSH Q6H PRN FOR ITCHING Enoxaparin Sodium 75 mg 10/05/17 19:00 10/06/17 10:32 Lovenox - SQ 75 mg BID@0700,1900 THOM Administration Hydromorphone HCl 2 mg 10/05/17 18:56 10/06/17 09:03 Dilaudid - PO 2 mg Q3H PRN Administration PAIN LEVEL 6-10 Sodium Chloride 1,000 mls @ 150 mls/hr 10/05/17 17:01 10/05/17 20:06 Normal Saline - IV 150 mls/hr ASDIR THOM Administration Insulin Aspart 1 vial 10/05/17 16:30 10/06/17 11:44 Novolog Vial Sliding Scale - SQ Not Given ACHS THOM Protocol Morphine Sulfate 4 mg 10/05/17 18:58 10/06/17 11:47 Morphine Sulfate IVPUSH 4 mg Q4H PRN Administration PAIN LEVEL 6-10 Ondansetron HCl 4 mg 10/05/17 17:04 10/06/17 09:10 Zofran Injection IVPUSH 4 mg Q4H PRN Administration NAUSEA Pantoprazole Sodium 40 mg 10/06/17 10:00 10/06/17 10:24 Protonix Iv IVPUSH 40 mg DAILY THOM Administration ASSESSMENT/PLAN: 37 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 -Agree with IVF, Folic acid, pain control for management of pain -Agree with Dr. Galaviz's note- lovenox for now and xarelto later if bleeding stable or none for her prior h/o of DVT/ PE, duplex of L.UE and neck -I dont think hydroxyurea in the short term is beneficial since she has a h/o of non compliance -I will send Hb electrophoresis to confirm her sickle cell type -No requirements for blood transfusions at this time -will continue to f/v
[2017-10-06] MEDS: SODIUM CHLORIDE 1,000 ML IV SCH (13:28)
[2017-10-06] MEDS: FOLIC ACID 1 MG TABLET (FP) PO SCH (13:33)
[2017-10-06] MEDS ORDERED: FOLIC ACID 1 MG TABLET (FP) ONE (13:33)
--- NOTE | 2017-10-06 13:56 | PN ---
Physical Exam: SUBJECTIVE: Patient seen and examined, feels better,no further diarrhea. abdominal pain improved. Generalized body pain has improved. Left upper extremity swelling, reports from IV site, but not where IV infiltrated and re- iterates the infiltrated IV was in the right arm. No new dyspnea noted. OBJECTIVE: Vital Signs Period Temp Pulse Resp BP Sys/Michael Pulse Ox Last 24 Hr 98 F-98.5 F 74-95 17-20 110-142/78-104 98-100 GENERAL:sitting in bed in no acute distress Neck: fullness left supraclavicular fossa, non tender Abdomen:soft, mild tenderness in the larry-umbilc tenderness (improved from yesterday), no voluntary or involuntary guarding or rigidity, positive bowel sounds Extremities: left hand edema with mild erythema, positive pulses Laboratory Results - last 24 hr 10/05/17 10/06/17 10/06/17 19:50 05:40 05:40 WBC RBC Hgb Hct MCV MCH MCHC RDW Plt Count MPV Absolute Neuts (auto) Neutrophils % Lymphocytes % Monocytes % Eosinophils % Basophils % Nucleated RBC % PT with INR 12.50 13.20 H INR 1.11 1.17 H Sodium Potassium Chloride Carbon Dioxide Anion Gap BUN Creatinine Creat Clearance w eGFR POC Glucometer Random Glucose Hemoglobin A1c % 5.4 Calcium Phosphorus Magnesium Total Bilirubin AST ALT Alkaline Phosphatase Total Protein Albumin 10/06/17 10/06/17 10/06/17 05:40 05:40 11:42 WBC 10.9 H RBC 4.14 Hgb 12.8 Hct 36.8 MCV 88.9 MCH 30.9 MCHC 34.8 RDW 13.7 Plt Count 265 D MPV 7.6 Absolute Neuts (auto) 7.2 Neutrophils % 66.0 Lymphocytes % 26.1 D Monocytes % 6.0 Eosinophils % 1.7 Basophils % 0.2 Nucleated RBC % 0 PT with INR INR Sodium 144 Potassium 3.6 Chloride 111 H Carbon Dioxide 24 Anion Gap 9 BUN 5 L Creatinine 0.6 Creat Clearance w eGFR > 60 POC Glucometer [id number] Random Glucose 87 Hemoglobin A1c % Calcium 8.3 L Phosphorus 2.4 L Magnesium 2.1 Total Bilirubin 0.6 AST 21 ALT 27 Alkaline Phosphatase 95 D Total Protein 7.0 Albumin 3.6 Active Medications Generic Name Dose Route Start Last Admin Trade Name Freq PRN Reason Stop Dose Admin Diphenhydramine HCl 12.5 mg 10/06/17 09:30 Benadryl Injection - IVPUSH Q6H PRN FOR ITCHING Enoxaparin Sodium 75 mg 10/05/17 19:00 10/06/17 10:32 Lovenox - SQ 75 mg BID@0700,1900 THOM Administration Folic Acid 1 mg 10/06/17 13:00 10/06/17 13:33 Folic Acid - PO 1 mg DAILY THOM Administration Hydromorphone HCl 2 mg 10/05/17 18:56 10/06/17 13:27 Dilaudid - PO 2 mg Q3H PRN Administration PAIN LEVEL 6-10 Sodium Chloride 1,000 mls @ 150 mls/hr 10/05/17 17:01 10/06/17 13:28 Normal Saline - IV 150 mls/hr ASDIR THOM Administration Insulin Aspart 1 vial 10/05/17 16:30 10/06/17 11:44 Novolog Vial Sliding Scale - SQ Not Given ACHS [facility] Protocol Morphine Sulfate 4 mg 10/05/17 18:58 10/06/17 11:47 Morphine Sulfate IVPUSH 4 mg Q4H PRN Administration PAIN LEVEL 6-10 Ondansetron HCl 4 mg 10/05/17 17:04 10/06/17 09:10 Zofran Injection IVPUSH 4 mg Q4H PRN Administration NAUSEA Pantoprazole Sodium 40 mg 10/06/17 10:00 10/06/17 10:24 Protonix Iv IVPUSH 40 mg DAILY THOM Administration ASSESSMENT/PLAN: 37 yof with acute sickle cell crisis with left thigh pain -Acute sickle cell crisis -Dehydration -Nausea/vomiting/diarrhea, /From her sickle cell crisis (reports similar prior presentations) vs gastroenteritis , less likely -?Scant hemetemesis, from vomiting (similar prior episodes and reportedly non concerning EGD outpatient), none inhouse -Left thigh pain, r/o DVT -RUE IV infiltration -Left hand edema with supraclavicular fullness -Multiple DVT/PE, non compliance with xarelto -HTN -Reported h/o second degree Heart block in crisis. Plan: Supportive treatment with aggressive IVF, NS 150/hr, zofran. No IV dilaudid in the hospital. Morphine prn alternating with PO dilaudid, working well, continue. Advance to regular diet. Recurrent episodes, non compliant with hydroxyurea. Hematology input noted. Hb electrophoresis. Stool studies if recurrent diarrhea. No focal signs/symptoms concerning for infection. Dopper LLE to r/o DVT. LUE Doppler. No evidence of bleed, drop in H/h likely from hemodilution. No evidence of bleed. Lovenox inhouse, resume xarelto on d/c Warm compresses to LUE. Resume norvasc based on BP readings. DVTPPX, as above. GIPPX with protonix 40 mg IV daily. H/o 2 degree AVBlock while in crisis. D/c in 24-48 hours if symptoms continue to improve. Plan discussed with patient and mother atbedside in detail, all questions answered. Patient relays understanding and in agreement with the plan. Visit type - Emergency Visit Emergency Visit: Yes ED Registration Date: 10/05/17 Care time: The patient presented to the Emergency Department on the above date and was hospitalized for further evaluation of their emergent condition. - New Patient This patient is new to me today: No - Critical Care Critical Care patient: No - Discharge Referral Referred to [facility] Med P.C.: No
[2017-10-06 16:14] VITALS: BMI 24.4
[2017-10-07] MEDS: morphine SULFATE 4 MG/ML VIAL IVPUSH PRN ×5 (01:01→23:22)
[2017-10-07] MEDS: HYDROmorphone HCL 2 MG TABLET PO PRN ×4 (04:09→21:29)
[2017-10-07] MEDS: ENOXAPARIN NA (PORCINE) 80 MG/0.8 ML DISP.SYRIN SQ SCH ×2 (06:02→18:17)
[2017-10-07] MEDS: INSULIN SLIDING SCALE (NOVOLOG) 1 VIAL SQ SCH ×4 (06:09→21:36)
[2017-10-07 06:53] LABS: BASO % 0.3 % (0-2.0); EOS % 6.1 % (0-4.5); HEMATOCRIT 38.5 % (32.4-45.2); HEMOGLOBIN 13.2 GM/dL (10.7-15.3); LYMPH % 41.7 % (8-40); MCH 31.1 pg (25.7-33.7); MCHC 34.3 g/dl (32.0-36.0); MEAN CELL VOLUME 90.6 fl (80-96); MEAN PLT VOLUME 7.4 fl (7.5-11.1); MONO % 7.2 % (3.8-10.2); NEUT % 44.7 % (42.8-82.8); PLATELET COUNT 238 K/MM3 (134-434); RBC 4.25 M/mm3 (3.60-5.2); RDW 13.8 % (11.6-15.6); WHITE BLOOD COUNT 7.3 K/mm3 (4.0-10.0)
[2017-10-07 06:56] LABS: INR 1.11 (0.82-1.09); PROTHROMBIN TIME (PATIENT) 12.5 SEC (9.7-13.0)
[2017-10-07 06:59] LABS: CHLORIDE 109 mmol/L (98-107); POTASSIUM 3.8 mmol/L (3.5-5.1); SODIUM 142 mmol/L (136-145)
[2017-10-07 07:05] LABS: ANION GAP 10 (8-16); BLOOD UREA NITROGEN 4 mg/dL (7-18); CALCIUM 8.7 mg/dL (8.5-10.1); CO2 23 mmol/L (21-32); CREATININE 0.6 mg/dL (0.55-1.02); GLUCOSE,RANDOM 91 mg/dL (74-106); PHOSPHOROUS 3.3 mg/dL (2.5-4.9)
[2017-10-07] MEDS: FOLIC ACID 1 MG TABLET (FP) PO SCH (09:24)
[2017-10-07] MEDS: ONDANSETRON 4 MG/2 ML VIAL IVPUSH PRN (09:25)
[2017-10-07] MEDS: PANTOPRAZOLE SODIUM 40 MG VIAL IVPUSH SCH (09:25)
[2017-10-07] MEDS: amLODIPine BESYLATE 5 MG TABLET (FP) PO SCH (09:25)
[2017-10-07] MEDS ORDERED: PROMETHAZINE HCL 25 MG/1 ML VIAL IVPUSH ONE (12:00)
--- NOTE | 2017-10-07 15:32 | PN ---
Teaching Attending Note Name of Resident: Yina Ji ATTENDING PHYSICIAN STATEMENT I saw and evaluated the patient. I reviewed the resident's note and discussed the case with the resident. I agree with the resident's findings and plan as documented with exceptions below. SUBJECTIVE: Patient seen and examined. Overall feels better, still unable to tolerate PO due to nausea. Left hand swelling improved, still with left supraclavicular fossa fullness. OBJECTIVE: Vital Signs Period Temp Pulse Resp BP Sys/Michael Pulse Ox Last 24 Hr 97.8 F-98.6 F 76-92 14-20 135-152/76-103 100-100 Intake & Output 10/04/17 10/05/17 10/06/17 10/07/17 23:59 23:59 23:59 23:59 Intake Total 950 900 Balance 950 900 Weight 165 lb 147 lb General: sitting in bed in no acute distress Chest: CTAB, no rales or wheezing Abdomen:soft, minimal periumbilical tenderness, markedly improved exam, no voluntary or involuntary guarding or rigidity, positive bowel sounds Extremities: Left hand edema improved Neck: left supraclavicular fossa full ness unchanged, non tender Active Medications Amlodipine Besylate (Norvasc -) 5 mg PO DAILY REPLACED BY [facility] Last Admin: 10/07/17 09:25 Dose: 5 mg Diphenhydramine HCl (Benadryl Injection -) 12.5 mg IVPUSH Q6H PRN PRN Reason: FOR ITCHING Last Admin: 10/07/17 11:00 Dose: 12.5 mg Enoxaparin Sodium (Lovenox -) 75 mg SQ BID@0700,1900 REPLACED BY [facility] Last Admin: 10/07/17 06:02 Dose: 75 mg Folic Acid (Folic Acid -) 1 mg PO DAILY REPLACED BY [facility] Last Admin: 10/07/17 09:24 Dose: 1 mg Hydromorphone HCl (Dilaudid -) 2 mg PO Q3H PRN PRN Reason: PAIN LEVEL 6-10 Last Admin: 10/07/17 14:45 Dose: 2 mg Sodium Chloride (Normal Saline -) 1,000 mls @ 150 mls/hr IV ASDIR REPLACED BY [facility] Last Admin: 10/06/17 13:28 Dose: 150 mls/hr Insulin Aspart (Novolog Vial Sliding Scale -) 1 vial SQ ACHS REPLACED BY [facility]; Protocol Last Admin: 10/07/17 12:27 Dose: Not Given Morphine Sulfate (Morphine Sulfate) 4 mg IVPUSH Q4H PRN PRN Reason: PAIN LEVEL 6-10 Last Admin: 10/07/17 12:26 Dose: 4 mg Ondansetron HCl (Zofran Injection) 4 mg IVPUSH Q4H PRN PRN Reason: NAUSEA Last Admin: 10/07/17 09:25 Dose: 4 mg Pantoprazole Sodium (Protonix Iv) 40 mg IVPUSH DAILY THOM Last Admin: 10/07/17 09:25 Dose: 40 mg Promethazine HCl (Phenergan Injection -) 12.5 mg IVPB Q6H PRN PRN Reason: NAUSEA AND/OR VOMITING Laboratory Results - last 24 hr 10/06/17 10/07/17 10/07/17 16:49 05:30 05:30 WBC 7.3 RBC 4.25 Hgb 13.2 Hct 38.5 MCV 90.6 MCH 31.1 MCHC 34.3 RDW 13.8 Plt Count 238 MPV 7.4 L Absolute Neuts (auto) 3.3 Neutrophils % 44.7 D Lymphocytes % 41.7 H D Monocytes % 7.2 Eosinophils % 6.1 H D Basophils % 0.3 Nucleated RBC % 0 PT with INR 12.50 INR 1.11 Sodium Potassium Chloride Carbon Dioxide Anion Gap BUN Creatinine Creat Clearance w eGFR POC Glucometer 94 Random Glucose Calcium Phosphorus Magnesium 10/07/17 10/07/17 10/07/17 05:30 06:07 12:25 WBC RBC Hgb Hct MCV MCH MCHC RDW Plt Count MPV Absolute Neuts (auto) Neutrophils % Lymphocytes % Monocytes % Eosinophils % Basophils % Nucleated RBC % PT with INR INR Sodium 142 Potassium 3.8 Chloride 109 H Carbon Dioxide 23 Anion Gap 10 BUN 4 L Creatinine 0.6 Creat Clearance w eGFR > 60 POC Glucometer 94 107 Random Glucose 91 Calcium 8.7 Phosphorus 3.3 Magnesium 2.0 Microbiology 10/05/17 11:00 Urine - Urine Clean Catch Urine Culture - Final Serratia Fonticola ASSESSMENT AND PLAN: 37 yof with acute sickle cell crisis with left thigh pain -Acute sickle cell crisis -Dehydration -Nausea/vomiting/diarrhea, /From her sickle cell crisis (reports similar prior presentations) vs less likely gastroenteritis -?Scant hemetemesis, from vomiting (similar prior episodes and reportedly non concerning EGD outpatient), none inhouse -Left thigh pain, neg duplex for DVT -RUE IV infiltration -Left hand edema likely from IV infiltration, neg Duplex with supraclavicular fullness -Multiple DVT/PE, non compliance with xarelto -HTN -Reported h/o second degree Heart block in crisis -Asymptomatic bacteruria. Plan: Supportive treatment with aggressive IVF, NS 150/hr, zofran. No IV dilaudid in the hospital. Morphine prn alternating with PO dilaudid, working well, continue. Unable to tolerate diet well, promethazine prn. Recurrent episodes, non compliant with hydroxyurea. Hematology input noted. Hb electrophoresis. Stool studies if recurrent diarrhea. No focal signs/symptoms concerning for infection. Dopper lower extremities/LUE neg for DVT. No evidence of bleed, h/h overall stable. Lovenox inhouse, resume xarelto on d/c Warm compresses to LUE. Resume norvasc based on BP readings. DVTPPX, as above. GIPPX with protonix 40 mg IV daily. H/o 2 degree AVBlock while in crisis. D/c in 24-48 hours if symptoms continue to improve and tolerating diet well. Plan discussed with patient in detail, all questions answered. Patient relays understanding and in agreement with the plan.
[2017-10-07] MEDS: SODIUM CHLORIDE 1,000 ML IV SCH (16:45)
[2017-10-07] MEDS: PROMETHAZINE HCL 25 MG/1 ML VIAL IVPB PRN (18:17)
--- NOTE | 2017-10-07 18:35 | PN ---
Physical Exam: SUBJECTIVE: Patient seen and examined this morning at bedside. Patient experienced some night sweats for which Ice packs helped. Patient complains of light pink tint in her Urine. Denies any bloody stools, hemptysis. She has a reduced appetite as of late. Patient asked for her pain meds three times over night as per nursing. Denies fevers, chills, chest pain, SOB, Diarrhea, nausea, vomiting. OBJECTIVE: Vital Signs Period Temp Pulse Resp BP Sys/Michael Pulse Ox Last 24 Hr 97.8 F-98.9 F 80-92 14-20 135-152/76-99 100-100 GENERAL: The patient is awake, alert, and fully oriented, in no acute distress. NECK: Left Supraclavicular fossa fullness that is mildly tender. LUNGS: Breath sounds equal, clear to auscultation bilaterally, no wheezes, no crackles HEART: Regular rate and rhythm, S1, S2 without murmur, rub or gallop. ABDOMEN: Soft, Mild periumbilical tenderness to palpation, nondistended, normoactive bowel sounds, no guarding, no rebound EXTREMITIES: 2+ pulses, Left hand swelling, B/L Upper extremity ROM intact Laboratory Results - last 24 hr 10/07/17 10/07/17 10/07/17 05:30 05:30 05:30 WBC 7.3 RBC 4.25 Hgb 13.2 Hct 38.5 MCV 90.6 MCH 31.1 MCHC 34.3 RDW 13.8 Plt Count 238 MPV 7.4 L Absolute Neuts (auto) 3.3 Neutrophils % 44.7 D Lymphocytes % 41.7 H D Monocytes % 7.2 Eosinophils % 6.1 H D Basophils % 0.3 Nucleated RBC % 0 PT with INR 12.50 INR 1.11 Sodium 142 Potassium 3.8 Chloride 109 H Carbon Dioxide 23 Anion Gap 10 BUN 4 L Creatinine 0.6 Creat Clearance w eGFR > 60 POC Glucometer Random Glucose 91 Calcium 8.7 Phosphorus 3.3 Magnesium 2.0 10/07/17 10/07/17 10/07/17 06:07 12:25 17:38 WBC RBC Hgb Hct MCV MCH MCHC RDW Plt Count MPV Absolute Neuts (auto) Neutrophils % Lymphocytes % Monocytes % Eosinophils % Basophils % Nucleated RBC % PT with INR INR Sodium Potassium Chloride Carbon Dioxide Anion Gap BUN Creatinine Creat Clearance w eGFR POC Glucometer 94 107 122 Random Glucose Calcium Phosphorus Magnesium Active Medications Amlodipine Besylate (Norvasc -) 5 mg PO DAILY [facility] Last Admin: 10/07/17 09:25 Dose: 5 mg Cefuroxime Axetil (Ceftin -) 500 mg PO BID [facility] Diphenhydramine HCl (Benadryl Injection -) 12.5 mg IVPUSH Q6H PRN PRN Reason: FOR ITCHING Last Admin: 10/07/17 18:25 Dose: 12.5 mg Enoxaparin Sodium (Lovenox -) 75 mg SQ BID@0700,1900 [facility] Last Admin: 10/07/17 18:17 Dose: 75 mg Folic Acid (Folic Acid -) 1 mg PO DAILY [facility] Last Admin: 10/07/17 09:24 Dose: 1 mg Hydromorphone HCl (Dilaudid -) 2 mg PO Q3H PRN PRN Reason: PAIN LEVEL 6-10 Last Admin: 10/07/17 14:45 Dose: 2 mg Sodium Chloride (Normal Saline -) 1,000 mls @ 150 mls/hr IV ASDIR [facility] Last Admin: 10/07/17 16:45 Dose: 150 mls/hr Insulin Aspart (Novolog Vial Sliding Scale -) 1 vial SQ ACHS [facility]; Protocol Last Admin: 10/07/17 17:39 Dose: Not Given Melatonin (Melatonin) 1 mg PO [facility] Morphine Sulfate (Morphine Sulfate) 4 mg IVPUSH Q4H PRN PRN Reason: PAIN LEVEL 6-10 Last Admin: 10/07/17 17:39 Dose: 4 mg Ondansetron HCl (Zofran Injection) 4 mg IVPUSH Q4H PRN PRN Reason: NAUSEA Last Admin: 10/07/17 09:25 Dose: 4 mg Pantoprazole Sodium (Protonix Iv) 40 mg IVPUSH DAILY [facility] Last Admin: 10/07/17 09:25 Dose: 40 mg Promethazine HCl (Phenergan Injection -) 12.5 mg IVPB Q6H PRN PRN Reason: NAUSEA AND/OR VOMITING Last Admin: 10/07/17 18:17 Dose: 12.5 mg IMAGING: - Gallbladded US: Negative study - CT Abdomen/Pelvis: Essentially negative study - US Duplex Leg: No evidence of acute DVT - CXR: No evidence of acute infiltrate or pleural effusion. - US Duplex Arm: No evidence of left upper extremity DVT. ASSESSMENT/PLAN: 37 y/o F with PMHx of SCD (multiple crises), fibromyalgia, DVT x3, PE x2, HTN presents after her flight from [place] with abdominal pain, n/v and generalized body pain 1. Acute Sickle cell crisis - Continue Normal Saline 1,000 mls @ 150 mls/hr - Zofran stoppe. Continue Phenergan 12.5 mg IVPB Q6H PRN - Continue Morphine 4 mg IVPUSH Q4H PRN - Continue Dilaudid 2 mg PO Q3H PRN - Hemonc consult (Dr. Weiss): Lovenox for now and xarelto later, will send Hb electrophoresis to confirm her sickle cell type - CXR 2. Epigastric pain - Likely secondary to retching, no massive hematemesis reported - Continue Protonix IV 40 mg IVPUSH DAILY - CT Abdomen Pelvis noted 3. Nausea/vomting - Continue Phenergan 12.5 mg IVPB Q6H PRN - Continue Normal Saline 1,000 mls @ 150 mls/hr 4. LE (thigh) swelling and pain L>R - Hx of recurrent DVTs - US Duplex of Leg and UE noted - Continue Lovenox 75 mg SQ BID 5. HTN - Continue Norvasc 5 mg PO DAILY 6. Hx of 2nd degree heart block - In previous crises - EKG pending - Monitor on tele 7. FEN - Continue Normal Saline 1,000 mls @ 150 mls/hr - Lytes WNL - Sodium Controlled Diet 8. PPx - Continue Lovenox 75 mg SQ BID - Continue Protonix IV 40 mg IVPUSH DAILY Visit type - Emergency Visit Emergency Visit: Yes ED Registration Date: 10/05/17 Care time: The patient presented to the Emergency Department on the above date and was hospitalized for further evaluation of their emergent condition. - New Patient This patient is new to me today: Yes Date on this admission: 10/07/17 - Critical Care Critical Care patient: No
--- NOTE | 2017-10-07 20:54 | HOSP ---
Physical Examination Vital Signs: Vital Signs Temperature 98.9 F 10/07/17 18:00 Pulse Rate 87 10/07/17 18:00 Respiratory Rate 20 10/07/17 18:00 Blood Pressure 137/99 10/07/17 18:00 O2 Sat by Pulse Oximetry (%) 100 10/07/17 09:00 Labs: CBC, BMP 10/07/17 05:30 10/07/17 05:30 Hospitalist Encounter Assessment: Paged to see patient complaining that her "throat is closing" with difficulty swallowing Patient seen sitting up in exam bed in mild distress Anxious appearing, tearful upon encounter Vitals: 145/90, HR 90, RR 18, O2 98%RA States the difficulty swallowing, and throat tightness was sudden in onset, and denies prior onset of similar symptoms Admits history of anxiety, but denies taking home anxiety medication Denies headache, chest pain, palpitations, shortness of breath, N/V//D On exam PERRLA, EOMI Oral mucosa moist, no thrush, no oropharyngeal exudates, no visible mucus, no visible airway obstruction +S1, +S2 no murmurs rubs gallops, Lungs clear to auscultation B/L, no wheezing, no stridor, no rhonchi Abdomen soft, nontender to palpation CN2-XII intact, no focal defecits Melatonin to allow her to rest and sleep Psychiatric consult placed Visit type - Emergency Visit Emergency Visit: No - New Patient This patient is new to me today: Yes Date on this admission: 10/08/17 - Critical Care Critical Care patient: No
--- NOTE | 2017-10-07 21:24 | PN ---
Progress Note (short form) - Note Progress Note: Patient seen and examined Reports that she had an anxiety attack with lumpinss in the throat which has resolved Last Vital Signs Temp Pulse Resp BP Pulse Ox 97.8 F 75 20 140/105 100 10/08/17 05:00 10/08/17 05:00 10/08/17 05:00 10/08/17 05:00 10/07/17 21:00 Cor: RSR, No murmurs, No gallops Lungs: Clear to P&A Abd: Soft, Normal bowel sounds, No organomegaly Ext:No significant edema Abnormal Lab Results 10/07/17 10/07/17 05:30 05:30 MPV 7.4 L Lymphocytes % 41.7 H D Eosinophils % 6.1 H D Chloride 109 H BUN 4 L Active Medications Generic Name Dose Route Start Last Admin Trade Name Freq PRN Reason Stop Dose Admin Amlodipine Besylate 5 mg 10/07/17 10:00 10/07/17 09:25 Norvasc - PO 5 mg DAILY [facility] Administration Cefuroxime Axetil 500 mg 10/07/17 22:00 10/07/17 21:29 Ceftin - PO 500 mg BID [facility] Administration Diphenhydramine HCl 12.5 mg 10/06/17 09:30 10/07/17 18:25 Benadryl Injection - IVPUSH 12.5 mg Q6H PRN Administration FOR ITCHING Enoxaparin Sodium 75 mg 10/05/17 19:00 10/08/17 06:28 Lovenox - SQ 75 mg BID@0700,1900 [facility] Administration Folic Acid 1 mg 10/06/17 13:00 10/07/17 09:24 Folic Acid - PO 1 mg DAILY [facility] Administration Hydromorphone HCl 2 mg 10/05/17 18:56 10/08/17 04:17 Dilaudid - PO 2 mg Q3H PRN Administration PAIN LEVEL 6-10 Sodium Chloride 1,000 mls @ 150 mls/hr 10/05/17 17:01 10/07/17 16:45 Normal Saline - IV 150 mls/hr ASDIR [facility] Administration Insulin Aspart 1 vial 10/05/17 16:30 10/08/17 06:27 Novolog Vial Sliding Scale - SQ Not Given ACHS [facility] Protocol Melatonin 1 mg 10/07/17 21:00 10/07/17 23:23 Melatonin PO 1 mg HS [facility] Administration Morphine Sulfate 4 mg 10/05/17 18:58 10/08/17 06:28 Morphine Sulfate IVPUSH 4 mg Q4H PRN Administration PAIN LEVEL 6-10 Ondansetron HCl 4 mg 10/05/17 17:04 10/08/17 00:48 Zofran Injection IVPUSH 4 mg Q4H PRN Administration NAUSEA Pantoprazole Sodium 40 mg 10/06/17 10:00 10/07/17 09:25 Protonix Iv IVPUSH 40 mg DAILY [facility] Administration Promethazine HCl 12.5 mg 10/07/17 15:28 10/07/17 18:17 Phenergan Injection - IVPB 12.5 mg Q6H PRN Administration NAUSEA AND/OR VOMITING A/P 37 y/o patient with h/o HTN, heart block, Hemoglobin SC disease, here for pain crisis improving with hydation/pain control h/o PE/DVT on lovenox Neg. duplex upper ext. will folow
[2017-10-07] MEDS: CEFUROXIME AXETIL 500 MG TABLET PO SCH (21:29)
[2017-10-07] MEDS: MELATONIN 1 MG TABLET PO SCH (23:23)
[2017-10-08] MEDS: ONDANSETRON 4 MG/2 ML VIAL IVPUSH PRN ×2 (00:48→13:47)
[2017-10-08] MEDS: HYDROmorphone HCL 2 MG TABLET PO PRN ×3 (04:17→13:45)
[2017-10-08] MEDS: INSULIN SLIDING SCALE (NOVOLOG) 1 VIAL SQ SCH ×4 (06:27→21:35)
[2017-10-08] MEDS: ENOXAPARIN NA (PORCINE) 80 MG/0.8 ML DISP.SYRIN SQ SCH ×2 (06:28→18:36)
[2017-10-08] MEDS: morphine SULFATE 4 MG/ML VIAL IVPUSH PRN ×2 (06:28→10:48)
[2017-10-08 06:31] LABS: BASO % 0.6 % (0-2.0); EOS % 6.7 % (0-4.5); HEMATOCRIT 39.4 % (32.4-45.2); HEMOGLOBIN 13.7 GM/dL (10.7-15.3); LYMPH % 42.2 % (8-40); MCHC 34.8 g/dl (32.0-36.0); MEAN CELL VOLUME 88.9 fl (80-96); MEAN PLT VOLUME 7.3 fl (7.5-11.1); MONO % 7.9 % (3.8-10.2); NEUT % 42.6 % (42.8-82.8); PLATELET COUNT 263 K/MM3 (134-434); RBC 4.43 M/mm3 (3.60-5.2); WHITE BLOOD COUNT 5.7 K/mm3 (4.0-10.0)
[2017-10-08 06:43] LABS: INR 1.15 (0.82-1.09)
[2017-10-08] MEDS ORDERED: PT OWN MED DRAWER 7, Y5N ONE ×2 (06:47→09:22)
[2017-10-08 06:58] LABS: CHLORIDE 109 mmol/L (98-107); POTASSIUM 3.7 mmol/L (3.5-5.1); SODIUM 142 mmol/L (136-145)
[2017-10-08 07:19] LABS: ALBUMIN 3.5 g/dl (3.4-5.0); ALK PHOS 90 U/L (45-117); ANION GAP 10 (8-16); BILIRUBIN,TOTAL 0.6 mg/dL (0.2-1.0); BLOOD UREA NITROGEN 6 mg/dL (7-18); CALCIUM 8.7 mg/dL (8.5-10.1); CO2 23 mmol/L (21-32); CREATININE 0.6 mg/dL (0.55-1.02); GLUCOSE,RANDOM 94 mg/dL (74-106); MAGNESIUM 1.9 mg/dL (1.8-2.4); PHOSPHOROUS 3.4 mg/dL (2.5-4.9); SGOT/AST 26 U/L (15-37); SGPT/ALT 32 U/L (12-78); TOT PROT 6.8 g/dl (6.4-8.2)
[2017-10-08] MEDS: PANTOPRAZOLE SODIUM 40 MG VIAL IVPUSH SCH (09:25)
[2017-10-08] MEDS: FOLIC ACID 1 MG TABLET (FP) PO SCH (09:25)
[2017-10-08] MEDS: amLODIPine BESYLATE 5 MG TABLET (FP) PO SCH (09:25)
[2017-10-08] MEDS: PROMETHAZINE HCL 25 MG/1 ML VIAL IVPB PRN ×2 (09:25→16:36)
[2017-10-08] MEDS: CEFUROXIME AXETIL 500 MG TABLET PO SCH (09:26)
--- NOTE | 2017-10-08 13:49 | PN ---
Teaching Attending Note Name of Resident: Yina Ji ATTENDING PHYSICIAN STATEMENT I saw and evaluated the patient. I reviewed the resident's note and discussed the case with the resident. I agree with the resident's findings and plan as documented. SUBJECTIVE:remains nauseated intermittently but was able to tolerate some breakfast. continues to have intermittent vaginal spotting, which she says started prior to arrival. denies CP, SOB, fever, chills, V/C/D, vaginal discharge, vaginal pruritis, urinary frequency, dysuria. states her thigh pain has completely resolved. no repeat episodes of feeling like her throat is closing, states she had a stressful phone call prior to sensation of her throat closing and no repeat episodes. states this is her 10th crisis and always presents with thigh pain, nausea and vomiting and vaginal spotting. has not wanted to take hydroxyurea although recommended by per tufting machine operator because she does not want to be on daily medication but thinks she is more agreeable to it at this time OBJECTIVE: Last Vital Signs Temp Pulse Resp BP Pulse Ox 98.2 F 76 16 136/98 100 10/08/17 09:00 10/08/17 09:00 10/08/17 09:00 10/08/17 09:00 10/08/17 09:00 General NAD CV S1 S2 RRR no murmur/rub/gallop Lungs CTA B/L no wheezing/rales/rhonchi Extremities no tenderness ASSESSMENT AND PLAN: 37 yo F with acute sickle cell crisis with left thigh pain, nausea and vaginal spotting 1. Acute sickle cell crisis- presented like typical crisis as per pt. which has since resolved. states her pain has resolved and starting to tolerate diet. hgb has remained stable throughout course with only mildly elevated retic count. no elevation in bilirubin. would recommned hydroxyurea on discharge to prevent future crisis. cont with folic acid. hematolgoy onboard. Hgb electrophoresis pending 2. Nausea and vomiting- improved. advance diet as tolerated. d/c IVF 3. Ucx +- however UA was negative and asymptomatic. liekly colonization and not true infection. will d/c abx 4. Throat tightness- liekly panic attack. no repeat episodes. had similiar episodes in the past. no further workup at this time. has psychiatrist in [place] that she can f/u with when she returns home 5. H/o of DVT- duplex negative for DVT. on lovenox can switch over to xarelto 6. will see how patient tolerates lunch. if able to can d/c later today. plan to return home to [place] in 1 week. [employer]stop checked and not available for [place]. checked surrounding states with no reports of narcotic use Reference #: [id number]
[2017-10-08] MEDS: oxyCODONE HCL 5 MG TABLET PO PRN ×3 (16:36→23:49)
[2017-10-08] MEDS: ACETAMINOPHEN 325 MG TABLET (FP) PO PRN ×3 (16:37→23:50)
--- NOTE | 2017-10-08 17:18 | PN ---
Physical Exam: SUBJECTIVE: Patient seen and examined at bedside this morning. As per nursing, patient requested pain meds twice over night and felt better. Patient complains of nausea and was only able to tolerate water. Additionally complains of lack of appetite. Patient continues to have intermittent vaginal spotting which began prior to admission. Denies hematuria, urinary frequency, urgency, dysuria. Denies fevers, chills, Chest pain, SOB, Vomiting, diarrhea, constipation, hemoptysis or bloody stools. OBJECTIVE: Vital Signs Period Temp Pulse Resp BP Sys/Michael Pulse Ox Last 24 Hr 97.8 F-98.9 F 75-87 16-20 136-148/96-108 100-100 GENERAL: The patient is awake, alert, and fully oriented, in no acute distress. NECK: Left Supraclavicular fossa fullness that is mildly tender. LUNGS: Breath sounds equal, clear to auscultation bilaterally, no wheezes, no crackles HEART: Regular rate and rhythm, S1, S2 without murmur, rub or gallop. ABDOMEN: Soft, Mild periumbilical tenderness to palpation, nondistended, normoactive bowel sounds, no guarding, no rebound EXTREMITIES: 2+ pulses, Left hand swelling, B/L Upper extremity ROM intact Laboratory Results - last 24 hr 10/07/17 10/07/17 10/08/17 17:38 21:36 05:30 WBC 5.7 RBC 4.43 Hgb 13.7 Hct 39.4 MCV 88.9 MCH 31.0 MCHC 34.8 RDW 14.0 Plt Count 263 MPV 7.3 L Absolute Neuts (auto) 2.4 Neutrophils % 42.6 L Lymphocytes % 42.2 H Monocytes % 7.9 Eosinophils % 6.7 H Basophils % 0.6 Nucleated RBC % 0 PT with INR INR Sodium Potassium Chloride Carbon Dioxide Anion Gap BUN Creatinine Creat Clearance w eGFR POC Glucometer 122 106 Random Glucose Calcium Phosphorus Magnesium Total Bilirubin AST ALT Alkaline Phosphatase Total Protein Albumin 10/08/17 10/08/17 10/08/17 05:30 05:30 06:04 WBC RBC Hgb Hct MCV MCH MCHC RDW Plt Count MPV Absolute Neuts (auto) Neutrophils % Lymphocytes % Monocytes % Eosinophils % Basophils % Nucleated RBC % PT with INR 13.00 INR 1.15 H Sodium 142 Potassium 3.7 Chloride 109 H Carbon Dioxide 23 Anion Gap 10 BUN 6 L Creatinine 0.6 Creat Clearance w eGFR > 60 POC Glucometer 95 Random Glucose 94 Calcium 8.7 Phosphorus 3.4 Magnesium 1.9 Total Bilirubin 0.6 AST 26 ALT 32 Alkaline Phosphatase 90 Total Protein 6.8 Albumin 3.5 10/08/17 12:11 WBC RBC Hgb Hct MCV MCH MCHC RDW Plt Count MPV Absolute Neuts (auto) Neutrophils % Lymphocytes % Monocytes % Eosinophils % Basophils % Nucleated RBC % PT with INR INR Sodium Potassium Chloride Carbon Dioxide Anion Gap BUN Creatinine Creat Clearance w eGFR POC Glucometer 94 Random Glucose Calcium Phosphorus Magnesium Total Bilirubin AST ALT Alkaline Phosphatase Total Protein Albumin Active Medications Acetaminophen (Tylenol -) 650 mg PO Q3H PRN PRN Reason: FEVER Last Admin: 10/08/17 16:37 Dose: 650 mg Amlodipine Besylate (Norvasc -) 5 mg PO DAILY [facility] Last Admin: 10/08/17 09:25 Dose: 5 mg Diphenhydramine HCl (Benadryl Injection -) 12.5 mg IVPUSH Q6H PRN PRN Reason: FOR ITCHING Last Admin: 10/08/17 10:47 Dose: 12.5 mg Enoxaparin Sodium (Lovenox -) 75 mg SQ BID@0700,1900 [facility] Last Admin: 10/08/17 06:28 Dose: 75 mg Folic Acid (Folic Acid -) 1 mg PO DAILY [facility] Last Admin: 10/08/17 09:25 Dose: 1 mg Sodium Chloride (Normal Saline -) 1,000 mls @ 150 mls/hr IV ASDIR [facility] Last Admin: 10/07/17 16:45 Dose: 150 mls/hr Insulin Aspart (Novolog Vial Sliding Scale -) 1 vial SQ ACHS [facility]; Protocol Last Admin: 10/08/17 12:35 Dose: Not Given Melatonin (Melatonin) 1 mg PO HS [facility] Last Admin: 10/07/17 23:23 Dose: 1 mg Ondansetron HCl (Zofran Injection) 4 mg IVPUSH Q4H PRN PRN Reason: NAUSEA Last Admin: 10/08/17 13:47 Dose: 4 mg Oxycodone HCl (Roxicodone -) 10 mg PO Q3H PRN PRN Reason: PAIN LEVEL 6-10 Last Admin: 10/08/17 16:36 Dose: 10 mg Pantoprazole Sodium (Protonix Iv) 40 mg IVPUSH DAILY [facility] Last Admin: 10/08/17 09:25 Dose: 40 mg Promethazine HCl (Phenergan Injection -) 12.5 mg IVPB Q6H PRN PRN Reason: NAUSEA AND/OR VOMITING Last Admin: 10/08/17 16:36 Dose: 12.5 mg IMAGING: - Gallbladded US: Negative study - CT Abdomen/Pelvis: Essentially negative study - US Duplex Leg: No evidence of acute DVT - CXR: No evidence of acute infiltrate or pleural effusion. - US Duplex Arm: No evidence of left upper extremity DVT. ASSESSMENT/PLAN: 37 y/o F with PMHx of SCD (multiple crises), fibromyalgia, DVT x3, PE x2, HTN presents after her flight from [place] with abdominal pain, n/v and generalized body pain 1. Possible panic attack - Patient felt throat tightness after a stressful phone call - No repeat episodes - No further workup, F/U with her psychiatrist in [place] 2. Acute Sickle cell crisis - Pain has resolved - Hgb Stable - Bilirubin Stable - Continue Normal Saline 1,000 mls @ 150 mls/hr - Zofran stopped. Continue Phenergan 12.5 mg IVPB Q6H PRN - Continue Morphine 4 mg IVPUSH Q4H PRN - Continue Dilaudid 2 mg PO Q3H PRN - Continue Folic Acid 1 mg PO DAILY - Hemonc consult (Dr. Weiss): Lovenox for now and xarelto later, will send Hb electrophoresis to confirm her sickle cell type - CXR 3. Epigastric pain - Likely secondary to retching, no massive hematemesis reported - Continue Protonix IV 40 mg IVPUSH DAILY - CT Abdomen Pelvis noted 4. Nausea/vomting - Continue Phenergan 12.5 mg IVPB Q6H PRN - Continue Normal Saline 1,000 mls @ 150 mls/hr - Advance diet as tolerated 5. LE (thigh) swelling and pain L>R - Hx of recurrent DVTs - US Duplex of Leg and UE noted - Continue Lovenox 75 mg SQ BID 6. HTN - Continue Norvasc 5 mg PO DAILY 7. Hx of 2nd degree heart block - In previous crises - EKG pending - Monitor on tele 8. FEN - Continue Normal Saline 1,000 mls @ 150 mls/hr - Lytes WNL - Sodium Controlled Diet 9. PPx - Continue Lovenox 75 mg SQ BID - Continue Protonix IV 40 mg IVPUSH DAILY Visit type - Emergency Visit Emergency Visit: Yes ED Registration Date: 10/05/17 Care time: The patient presented to the Emergency Department on the above date and was hospitalized for further evaluation of their emergent condition. - New Patient This patient is new to me today: No - Critical Care Critical Care patient: No
[2017-10-08] MEDS: SODIUM CHLORIDE 1,000 ML IV SCH (18:36)
--- NOTE | 2017-10-08 20:38 | PN ---
Progress Note (short form) - Note Progress Note: Patient seen and examined Pain improved Continues with vaginal spotting Has been on DepoProvra halfway with absence of menses. Reports ovarian cysts previously documented in [place]. Last Vital Signs Temp Pulse Resp BP Pulse Ox 98.3 F 83 18 149/105 100 10/08/17 18:00 10/08/17 18:00 10/08/17 18:00 10/08/17 18:00 10/08/17 09:00 HEENT: KINSEY, EOM Intact Oropharynx: No thrush, No mucositis Neck: Supple Cor: RSR, No murmurs, No gallops Lungs: Clear to P&A Abd: Soft, Normal bowel sounds, No organomegaly Ext:No significant edema Skin: No rashes, Integument intact CBC, BMP 10/08/17 05:30 10/08/17 05:30 Current Medications Generic Name Dose Route Start Last Admin Trade Name Freq PRN Reason Stop Dose Admin Acetaminophen 650 mg 10/08/17 14:59 10/08/17 20:20 Tylenol - PO 650 mg Q3H PRN Administration FEVER Amlodipine Besylate 5 mg 10/07/17 10:00 10/08/17 09:25 Norvasc - PO 5 mg DAILY [facility] Administration Diphenhydramine HCl 12.5 mg 10/06/17 09:30 10/08/17 10:47 Benadryl Injection - IVPUSH 12.5 mg Q6H PRN Administration FOR ITCHING Enoxaparin Sodium 75 mg 10/05/17 19:00 10/08/17 18:36 Lovenox - SQ 75 mg BID@0700,1900 [facility] Administration Folic Acid 1 mg 10/06/17 13:00 10/08/17 09:25 Folic Acid - PO 1 mg DAILY [facility] Administration Sodium Chloride 1,000 mls @ 150 mls/hr 10/05/17 17:01 10/08/17 18:36 Normal Saline - IV 150 mls/hr ASDIR [facility] Administration Insulin Aspart 1 vial 10/05/17 16:30 10/08/17 17:02 Novolog Vial Sliding Scale - SQ Not Given ACHS [facility] Protocol Melatonin 1 mg 10/07/17 21:00 10/07/17 23:23 Melatonin PO 1 mg HS [facility] Administration Ondansetron HCl 4 mg 10/05/17 17:04 10/08/17 13:47 Zofran Injection IVPUSH 4 mg Q4H PRN Administration NAUSEA Oxycodone HCl 10 mg 10/08/17 14:57 10/08/17 20:19 Roxicodone - PO 10 mg Q3H PRN Administration PAIN LEVEL 6-10 Pantoprazole Sodium 40 mg 10/06/17 10:00 10/08/17 09:25 Protonix Iv IVPUSH 40 mg DAILY [facility] Administration Promethazine HCl 12.5 mg 10/07/17 15:28 10/08/17 16:36 Phenergan Injection - IVPB 12.5 mg Q6H PRN Administration NAUSEA AND/OR VOMITING Impression: Sickle crisis Vaginal spotting Continue Lovenox analgesia probablly can be reduced Consider TAX SPECIALIST f/u.
[2017-10-08] MEDS: MELATONIN 1 MG TABLET PO SCH (21:36)
[2017-10-09] MEDS: ACETAMINOPHEN 325 MG TABLET (FP) PO PRN ×3 (03:50→16:25)
[2017-10-09] MEDS: oxyCODONE HCL 5 MG TABLET PO PRN ×3 (03:51→16:24)
[2017-10-09] MEDS: INSULIN SLIDING SCALE (NOVOLOG) 1 VIAL SQ SCH ×3 (06:26→16:21)
[2017-10-09] MEDS: ENOXAPARIN NA (PORCINE) 80 MG/0.8 ML DISP.SYRIN SQ SCH (06:30)
[2017-10-09 06:39] LABS: BASO % 0.5 % (0-2.0); EOS % 7.5 % (0-4.5); HEMOGLOBIN 14.7 GM/dL (10.7-15.3); MCH 31.3 pg (25.7-33.7); MCHC 34.9 g/dl (32.0-36.0); MEAN CELL VOLUME 89.6 fl (80-96); MEAN PLT VOLUME 7.2 fl (7.5-11.1); MONO % 7.4 % (3.8-10.2); NEUT % 34.6 % (42.8-82.8); PLATELET COUNT 260 K/MM3 (134-434); RBC 4.69 M/mm3 (3.60-5.2); RDW 13.7 % (11.6-15.6); WHITE BLOOD COUNT 4.7 K/mm3 (4.0-10.0)
--- NOTE | 2017-10-09 08:16 | PN ---
Progress Note (short form) - Note Progress Note: Patient seen and examined Seems quite comfortable , sitting up in bed looking at i-phone States she has right rib cage pains Last Vital Signs Temp Pulse Resp BP Pulse Ox 97.6 F 68 18 133/73 99 10/09/17 06:00 10/09/17 06:00 10/09/17 06:00 10/09/17 06:00 10/08/17 21:00 HEENT: KINSEY, EOM Intact Oropharynx: No thrush, No mucositisCor: RSR, No murmurs, No gallops Lungs: Clear to P&A Abd: Soft, Normal bowel sounds, No organomegaly Ext:No significant edema Skin: No rashes, Integument intact CBC, BMP 10/09/17 05:30 10/08/17 05:30 Current Medications Generic Name Dose Route Start Last Admin Trade Name Freq PRN Reason Stop Dose Admin Acetaminophen 650 mg 10/09/17 07:38 Tylenol - PO Q3H PRN fever and pain Amlodipine Besylate 5 mg 10/07/17 10:00 10/08/17 09:25 Norvasc - PO 5 mg DAILY [facility] Administration Diphenhydramine HCl 12.5 mg 10/06/17 09:30 10/09/17 03:49 Benadryl Injection - IVPUSH 12.5 mg Q6H PRN Administration FOR ITCHING Enoxaparin Sodium 75 mg 10/05/17 19:00 10/09/17 06:30 Lovenox - SQ 75 mg BID@0700,1900 [facility] Administration Folic Acid 1 mg 10/06/17 13:00 10/08/17 09:25 Folic Acid - PO 1 mg DAILY [facility] Administration Sodium Chloride 1,000 mls @ 150 mls/hr 10/05/17 17:01 10/08/17 18:36 Normal Saline - IV 150 mls/hr ASDIR [facility] Administration Insulin Aspart 1 vial 10/05/17 16:30 10/09/17 06:26 Novolog Vial Sliding Scale - SQ Not Given ACHS [facility] Protocol Melatonin 1 mg 10/07/17 21:00 10/08/17 21:36 Melatonin PO 1 mg HS [facility] Administration Oxycodone HCl 10 mg 10/09/17 07:38 Roxicodone - PO Q6H PRN PAIN LEVEL 6-10 Pantoprazole Sodium 40 mg 10/06/17 10:00 10/08/17 09:25 Protonix Iv IVPUSH 40 mg DAILY [facility] Administration Promethazine HCl 12.5 mg 10/07/17 15:28 10/08/17 16:36 Phenergan Injection - IVPB 12.5 mg Q6H PRN Administration NAUSEA AND/OR VOMITING Pyridoxine HCl 50 mg 10/09/17 10:00 Vitamin B6 - PO DAILY [facility] Painful Sickle crisis Vaginal spotting Constipation- opiod induced Normal Hct against SS - favors SC or S-thal. Crises much less common in this population . Await HbE. Seems fairly comfortable Will give laxatives Continue monitoring Anticipate discharge shortly
[2017-10-09] MEDS: PROMETHAZINE HCL 25 MG/1 ML VIAL IVPB PRN (08:39)
[2017-10-09] MEDS: amLODIPine BESYLATE 5 MG TABLET (FP) PO SCH (09:52)
[2017-10-09] MEDS: FOLIC ACID 1 MG TABLET (FP) PO SCH (09:52)
[2017-10-09] MEDS ORDERED: PYRIDOXINE HCL (B-6) 50 MG TABLET (FP) PO SCH (10:00)
[2017-10-09] MEDS ORDERED: POLYETHYLENE GLYCOL 3350 119 GM BTL PO SCH (10:00)
[2017-10-09] MEDS: PANTOPRAZOLE SODIUM 40 MG VIAL IVPUSH SCH (10:26)
--- NOTE | 2017-10-09 11:16 | DS ---
Physical Exam: SUBJECTIVE: Patient seen and examined this morning while eating her breakfast. She tolerated her dinner last night. Patient continues to complain of nausea and feeling anxious. She also complains of hives for which she has received Benadryl. Continues to have vaginal bleeding that is unchanged from prior. As per nursing, patient requested pain meds 3 times overnight. Denies fevers, chills, chest pain, SOB, vomiting, diarrhea. Of note, A medication reconciliation was attempted by calling [facility] who searched their national records and said that the patient is not prescribed Oxycodone through there pharmacy. OBJECTIVE: Vital Signs Period Temp Pulse Resp BP Sys/Michael Pulse Ox Last 24 Hr 97.6 F-98.9 F 68-88 18-86 133-150/73-105 99 PHYSICAL EXAM GENERAL: The patient is awake, alert, and fully oriented, in no acute distress. NECK: Left Supraclavicular fossa fullness that is mildly tender. LUNGS: Breath sounds equal, clear to auscultation bilaterally, no wheezes, no crackles HEART: Regular rate and rhythm, S1, S2 without murmur, rub or gallop. ABDOMEN: Soft, Mild periumbilical tenderness to palpation, nondistended, normoactive bowel sounds, no guarding, no rebound EXTREMITIES: 2+ pulses, Left hand swelling, B/L Upper extremity ROM intact LABS Laboratory Results - last 24 hr 10/08/17 10/08/17 10/08/17 12:11 16:43 21:33 WBC RBC Hgb Hct MCV MCH MCHC RDW Plt Count MPV Absolute Neuts (auto) Neutrophils % Lymphocytes % Monocytes % Eosinophils % Basophils % Nucleated RBC % POC Glucometer 94 115 108 10/09/17 10/09/17 05:30 05:47 WBC 4.7 RBC 4.69 Hgb 14.7 Hct 42.0 MCV 89.6 MCH 31.3 MCHC 34.9 RDW 13.7 Plt Count 260 MPV 7.2 L Absolute Neuts (auto) 1.6 Neutrophils % 34.6 L Lymphocytes % 50.0 H Monocytes % 7.4 Eosinophils % 7.5 H Basophils % 0.5 Nucleated RBC % 0 POC Glucometer 100 IMAGING: - Gallbladded US: Negative study - CT Abdomen/Pelvis: Essentially negative study - US Duplex Leg: No evidence of acute DVT - CXR: No evidence of acute infiltrate or pleural effusion. - US Duplex Arm: No evidence of left upper extremity DVT. HOSPITAL COURSE: Date of Admission:10/05/17 Date of Discharge: 10/09/17 Prehospital course as per Dr. Naida Reyes Pt is a 37 yo F with PMHx of sickle cell disease (multiple crises), fibromyalgia , DVT x3, PE x2, HTN, HLD, and chronic cystitis presenting after her 1am flight from [place] with abdominal pain, n/v and generalized body pain that started around 3am. It started with increased diaphoresis, no objective fevers. Pt describes a 10/10 intermittent colicky generalized abd pain with NBNB vomiting later associated streaks of blood. Pt last ate yesterday because of N/V. Pt had endoscopy for similar symptoms in the past which was said to be normal. She had up to 10 episodes of vomiting in the ED, some witnessed with eventual dry heaving. She describes 3 episodes of loose non bloody stool and hematuria. Pt has had similar symptoms in past during her sickel cell crises and has been managed with genrous hydration and pain mx. She also has pain in both shoulders, back and both lower limbs. Pt has had up to 10 crises this year. Had 2 in August (, August 16). Says she takes hydrocodone 7.5-10mg at home as needed for pain. She got off xarelto a month ago after a DVT of left LE in apr 2017 and she also discontinued coumadin and lovenox in the past for previous DVTs/PEs. Pt has a hemoncologist in [facility] and thinks she was prescribed hydroxyurea, but does not take it. Pt has had 2nd degree blocks in the past during her crises, dose not take her prescribed amlodipine along with other medications because she is trying out natural options. Initially dyspneic today, which has since resolved, no syncope, weakness or cough.She noticed some thigh swelling bilaterally. ER course was notable for CT abd w/o contrast- wnl, Abd US, WBC-17.9, UA- glucosuria 2+, trace ketones, Pr, bld-2+, sugar -175, Iv morphine, Normal saline Hospital course Patient was admitted for Sickle cell crisis, likely pain crisis. Hematology and senior hydrogeologist were consulted. Patient was treated with aggressive fluids (NS 150 mls/hr ) and her pain was controlled by alternating Morphine PRN with PO Dilaudid. Her hemoglobin electrophoresis is still pending. Her nausea and vomiting resolved and she was able to tolerate a regular diet. Patients Urine culture was positive however her UA was negative and she remained asymptomatic. She was treated with a 2 day course of Ceftin. Patient continued to have vaginal spotting that she said is a chronic issue. She will follow up with her OBGyn in [place] to manage this. She experienced some throat tightness and difficulty sleeping that resolved with melatonin. Patient was told to follow up with her psychiatrist at home. Patients pain improved and she was told to follow up with her Blind Lacer at home to discuss strategies that prevent and better retail manager in training her sickle cell disease and pain crisis. She was anticoagulated with Lovenox and transitioned to Xarelto upon discharge. Minutes to complete discharge: 40 Discharge Summary Reason For Visit: SICKLE CELL DISEASE Current Active Problems Intractable abdominal pain (Acute) Intractable vomiting with nausea (Acute) Sickle cell anemia with crisis (Acute) Condition: Stable - Instructions Diet, Activity, Other Instructions: Given your past history of clots, it is advisable to take your blood thinner ( Xarelto) consistently. It is also beneficial to visit a blood specialist (Hematology) to discuss strategies to prevent and treat future crisis. This can include possibly starting a maintenance medication to prevent future crisis. Please increase your fluid intake. Please setup an appointment with your MUCK OPERATOR in [place] to follow up with your vaginal bleeding. Please return to the emergency department with any new or worsening symptoms or concerns including fevers, chest pain or shortness of breath. Please follow up with your primary care physician within 72 hours. Disposition: HOME - Home Medications Comprehensive Discharge Medication List: Ambulatory Orders Amlodipine Besylate [Norvasc -] 5 mg PO DAILY #30 tablet 05/15/16 Folic Acid 1 mg PO DAILY 10/07/17 Oxycodone HCl/Acetaminophen [Oxycodon-Acetaminophen 7.5-325] 1 each PO Q6H PRN 10/07/17 Rivaroxaban [Xarelto -] 15 mg PO DAILY 10/07/17 This patient is new to me today: No Emergency Visit: Yes ED Registration Date: 10/05/17 Care time: The patient presented to the Emergency Department on the above date and was hospitalized for further evaluation of their emergent condition. Critical Care patient: No - Discharge Referral Referred to [facility] Med P.C.: No
--- NOTE | 2017-10-09 12:34 | PN ---
Teaching Attending Note Name of Resident: Ynia Ji ATTENDING PHYSICIAN STATEMENT I saw and evaluated the patient. I reviewed the resident's note and discussed the case with the resident. I agree with the resident's findings and plan as documented. SUBJECTIVE:was nauseated with dinner last night and spit up some of the food but was able to eat half of her breakfast ok. continues to have vaginal spotting but no change in heaviness. denies CP, SOB, fever, chills, V/C/D, thigh pain OBJECTIVE: Last Vital Signs Temp Pulse Resp BP Pulse Ox 98.9 F 86 86 H 143/73 99 10/09/17 09:34 10/09/17 09:34 10/09/17 09:34 10/09/17 09:34 10/08/17 21:00 General NAD abdomen soft NT/ND Extremities no tenderness ASSESSMENT AND PLAN: 37 yo F with acute sickle cell crisis with left thigh pain, nausea and vaginal spotting 1. Acute sickle cell crisis- presented like typical crisis as per pt. pain is resolved. labs have remained normal during this hospital stay. electrophoresis to confirm diagnosis is still pending. will d/c on home medications and encourage patient to follow up [facility] facility maintenance supervisor when she returns home to see what can be done to prevent frequent crisis. 2. Nausea and vomiting- improved. tolerated breakfast. recommended to slowly advance as tolerated. eat bland food for the next few days 3. Ucx +- however UA was negative and asymptomatic. liekly colonization and not true infection. no indication for abx 4. Throat tightness- liekly panic attack. no repeat episodes. had similiar episodes in the past. no further workup at this time. has psychiatrist in [place] that she can f/u with when she returns home 5. Vaginal spotting- persistent and not worsening. Hgb stable. on depo provera. says she has intermittent spotting when she is late with her injections but claims she was not this time. offered to have CAMPUS DIRECTOR see her here but she prefers to follow up [facility] her own CAMPUS DIRECTOR when she returns home next week 6. H/o of DVT- duplex negative for DVT. on lovenox can switch over to xarelto 7. d/c home. plans to return to [place] on Saturday. Encouraged to make her appointments now so she can see them early next week
[2017-10-09] MEDS ORDERED: DOCUSATE SODIUM 100 MG CAPSULE (FP) PO SCH (14:00)
[2017-10-09 14:54] VITALS: BP 144/86; PULSE 99; TEMP 98.4
--- NOTE | 2017-10-09 15:46 | CON.OBG ---
Consult Consult Specialty:: COOLER SERVICE SUPERVISOR Reason for Consultation:: Vaginal spotting - History of Present Illness Chief Complaint: Pain during sex History of Present Illness: 37 yo Para 2, with h/o sickle cell disease, fibromyalgia, DVT x3, PE x2, HTN, HLD, and chronic cystitis admitted few days ago due to c/o abdominal pain and generalized body pain. COOLER SERVICE SUPERVISOR consulted due to vaginal spotting. Patient admits to be on Depoprovera x 12 years. She had not seen a COOLER SERVICE SUPERVISOR in a long time. She's seen and evaluated. She c/o pain during intercourse. - History Source History Provided By: Patient Limitations to Obtaining History: No Limitations - Past Medical History ...: No ...Para: 2 - Past Surgical History Past Surgical History: Yes: None - Alcohol/Substance Use Hx Alcohol Use: Yes (social) - Smoking History Smoking history: Never smoked Have you smoked in the past 12 months: No Home Medications - Allergies Allergies/Adverse Reactions: Allergies Allergy/AdvReac Type Severity Reaction Status Date / Time NABILA Inhibitors Allergy Verified 10/09/17 11:17 - Home Medications Home Medications: Ambulatory Orders Amlodipine Besylate [Norvasc -] 5 mg PO DAILY #30 tablet 05/15/16 Folic Acid 1 mg PO DAILY 10/07/17 Oxycodone HCl/Acetaminophen [Oxycodon-Acetaminophen 7.5-325] 1 each PO Q6H PRN 10/07/17 Rivaroxaban [Xarelto -] 15 mg PO DAILY 10/07/17 Family Disease History - Family Disease History Family History: Unremarkable Review of Systems - Review of Systems Constitutional: reports: No Symptoms HENT: reports: No Symptoms Neck: reports: No Symptoms Cardiovascular: reports: No Symptoms Respiratory: reports: No Symptoms Gastrointestinal: reports: No Symptoms Genitourinary: reports: Pain Breasts: reports: No Symptoms Reported Musculoskeletal: reports: No Symptoms Neurological: reports: No Symptoms Endocrine: reports: No Symptoms Hematology/Lymphatic: reports: No Symptoms Psychiatric: reports: No Symptoms Pain Intensity: 2 Physical Exam-COOLER SERVICE SUPERVISOR Vital Signs: Vital Signs Temperature 98.4 F 10/09/17 14:00 Pulse Rate 99 H 10/09/17 14:00 Respiratory Rate 86 H 10/09/17 09:34 Blood Pressure 144/86 10/09/17 14:00 O2 Sat by Pulse Oximetry (%) 99 10/09/17 09:00 Constitutional: Yes: Well Nourished Eyes: Yes: Conjunctiva Clear HENT: Yes: Atraumatic Neck: Yes: Supple Cardiovascular: Yes: Regular Rate and Rhythm Respiratory: Yes: Gaetano-Rader Gastrointestinal: Yes: Normal Bowel Sounds Pelvis: No: Tenderness Cervix: Yes: Normal Uterus: Yes: Normal Neurological: Yes: Alert, Oriented ...Motor Strength: WNL Psychiatric: Yes: Alert, Oriented Labs: CBC, BMP 10/09/17 05:30 10/08/17 05:30 Problem List - Problems (1) Dyspareunia Code(s): [id number] - Assessment/Plan Dyspareunia R/O Ovarian cyst F/U Transvaginal sonogram F/U with COOLER SERVICE SUPERVISOR as outpatient
[2017-10-09 16:43] LABS: HGB SOLUBILITY Positive (Negative); Hgb A 56.3 % (96.4-98.8); Hgb C 0 % (0.0); Hgb F 0 % (0.0-2.0); Hgb S 39.7 % (0.0)
== END 2017-10-09 17:51 | disposition home or self-care (01) | DRG 662 ==
LOC: JER 06:49 → JERBED 16:48 → OBSVTOIN 16:48 → J4W 10-06 15:09
PROVIDERS: ADMIT Hospitalist; ATTEND Internal Medicine
DX: D57.00 Hb-SS disease with crisis, unspecified (principal); I10 Essential (primary) hypertension; E78.5 Hyperlipidemia, unspecified; R11.2 Nausea with vomiting, unspecified; K59.00 Constipation, unspecified; R10.13 Epigastric pain; R09.02 Hypoxemia; I44.1 Atrioventricular block, second degree; F41.0 Panic disorder [episodic paroxysmal anxiety]; N94.19 Other specified dyspareunia
CPT/HCPCS: 36415; 71046-TC-FY; 74176-TC; 74177-TC; 76705-TC; 76830-TC; 80048; 80053; 81003; 81015; 82962; 83021; 83036; 83690; 83735; 84100; 84703; 85025; 85044; 85610; 85660; 87086; 87186; 93970-TC; 93971; 99285-25; J7030